=== PATIENT | female | born 1950 | race Caucasian/White ===

== ENCOUNTER → 2018-02-09 07:45 | Outpatient (CLI) | payer OTHER, SELFPAY ==
[2018-02-09 08:31] LABS: Hemoglobin A1c 9.1 % (4.2-6.3); Microalbumin,Random Urine < 5.0 mg/L (NO RANGE EST.)
[2018-02-09 08:44] LABS: AST(SGOT) 19 U/L (15-37); Alanine Aminotransfer ALT/SGPT 17 U/L (13-56); Albumin, Serum 3.4 g/dL (3.2-5.0); Alkaline Phosphatase 73 U/L (45-117); Anion Gap 5 (5-15); BUN 14 mg/dL (7-18); BUN/Creat Ratio 15.4 RATIO (10-20); Calcium,Total 9.1 mg/dL (8.5-10.1); Chloride 103 mmol/L (98-107); Creatinine, Serum 0.91 mg/dL (0.55-1.02); EST Glomerular Filtration Rate 66 mL/min (>60); Est Glom Filt Rate - Afr Amer 80 mL/min (>60); Globulin 3.4 g/dL (2.2-4.2); Glucose 122 mg/dL (74-106); Potassium 4.2 mmol/L (3.5-5.1); Protein, Total 6.8 g/dL (6.4-8.2); Sodium Level 140 mmol/L (136-145); Thyroid Stim Hormone (TSH) 0.25 uIU/mL (0.358-3.74)
== END ==
PROVIDERS: Family Provider Family Medicine; PCP Family Medicine; Visit Provider Nurse Practitioner
DX: E10.9 Type 1 diabetes mellitus without complications (principal); E03.9 Hypothyroidism, unspecified
CPT/HCPCS: 36415; 80053; 82043; 82570; 83036; 84443

== ENCOUNTER → 2018-05-01 09:58 | Outpatient (CLI) | payer OTHER, SELFPAY ==
--- NOTE | 2018-05-01 10:00 | BI_ITS ---
MAMMOGRAPHY - BILATERAL SCREENING 3-D ADARSH SYNTHESIS REASON FOR EXAM: Female, 67 years old. Bilateral Screening 3-D tomosynthesis PERTINENT HISTORY: No significant family history. TECHNIQUE: 2-D mammograms and 3-D Adarsh synthesis of the breast (s) were performed. CAD was performed. COMPARISON: None. FINDINGS: The breast composition is heterogeneously dense that can obscure small breast masses. Scattered benign calcifications are seen. No dense spiculated masses or suspicious microcalcifications are identified. No architectural distortion is identified. There is no skin thickening or retraction. BI/SCREENING MAMM (CAD), BILAT IMPRESSION: No mammographic signs of malignancy. Routine yearly mammograms recommended. ASSESSMENT CATEGORY: BIRADS Category 2: Benign. A letter regarding these results will be sent to the patient by the facility within 30 days. FOLLOW UP RECOMMENDATION: Yearly follow up mammogram recommended. (A) Approximately 10% of breast cancers are not detected by mammography. A normal mammogram should not delay biopsy of a clinically suspicious abnormality. Electronically Signed: Juan Gonzalez MD at 8:56 EDT , Service support ,
== END ==
PROVIDERS: Family Provider Family Medicine; PCP Family Medicine; Visit Provider Family Medicine
DX: Z12.31 Encounter for screening mammogram for malignant neoplasm of breast (principal)
CPT/HCPCS: 77063; 77067

== ENCOUNTER → 2018-06-12 08:13 | Outpatient (CLI) | payer OTHER, SELFPAY ==
[2018-06-12 09:15] LABS: Microalbumin,Random Urine 5.9 mg/L (NO RANGE EST.)
[2018-06-12 09:22] LABS: Hemoglobin A1c 8.2 % (4.2-6.3)
[2018-06-12 09:30] LABS: ALB/GLOB Ratio 0.9 RATIO (0.9-2.4); AST(SGOT) 19 U/L (15-37); Alanine Aminotransfer ALT/SGPT 18 U/L (13-56); Albumin, Serum 3.1 g/dL (3.2-5.0); Alkaline Phosphatase 69 U/L (45-117); Anion Gap 9 (5-15); BUN 14 mg/dL (7-18); BUN/Creat Ratio 15.3 RATIO (10-20); Calcium,Total 8.6 mg/dL (8.5-10.1); Chloride 101 mmol/L (98-107); Cholesterol 114 mg/dL (200); Creatinine, Serum 0.91 mg/dL (0.55-1.02); EST Glomerular Filtration Rate 65 mL/min (>60); Est Glom Filt Rate - Afr Amer 79 mL/min (>60); Globulin 3.4 g/dL (2.2-4.2); Glucose 79 mg/dL (74-106); High Density Lipoprotein 55 mg/dL; Potassium 4.5 mmol/L (3.5-5.1); Protein, Total 6.5 g/dL (6.4-8.2); Sodium Level 141 mmol/L (136-145); T4 Free Direct 1.15 ng/dL (0.76-1.46); Thyroid Stim Hormone (TSH) 1.35 uIU/mL (0.358-3.74); Triglycerides 47 mg/dL; Very Low Density Lipoprotein 9 mg/dL (5-40)
[2018-06-13 08:37] LABS: Vitamin D,25 Hydroxy 49.7 ng/mL (29.95-100.01)
== END ==
PROVIDERS: Family Provider Family Medicine; PCP Family Medicine; Visit Provider Nurse Practitioner
DX: E03.9 Hypothyroidism, unspecified (principal); E10.9 Type 1 diabetes mellitus without complications
CPT/HCPCS: 36415; 80053; 80061; 82043; 82306; 82570; 83036; 84439; 84443; 84481

== ENCOUNTER → 2018-11-30 07:49 | Outpatient (CLI) | payer MEDICARE, OTHER, SELFPAY ==
[2018-06-19 08:39] VITALS: BMI 25.4
[2018-11-30 10:07] LABS: Hematocrit 41.8 % (37-47); Hemoglobin 13.4 g/dl (12.0-15.0); Mean Corp Hgb Conc 32.1 g/gl (32-36); Mean Corpuscular Volume 87.4 fL (81-99); Mean Platelet Vol. 11.2 fl (6.2-12.0); Platelet Count 322 K/mm3 (150-450); RBC Distribution Width CV 13.9 % (11.6-14.6); RBC Distribution Width SD 44.7 fl (35.1-43.9); Red Blood Count 4.78 M/mm3 (4.2-5.4); Scan Indicated on CBC? Y/N NO; White Blood Count 7.3 K/mm3 (4.4-11.0)
[2018-11-30 10:26] LABS: Hemoglobin A1c 9.6 % (4.2-6.3)
[2018-11-30 10:28] LABS: Vitamin D,25 Hydroxy 51.5 ng/mL (29.95-100.01)
[2018-11-30 10:40] LABS: ALB/GLOB Ratio 0.9 RATIO (0.9-2.4); AST(SGOT) 17 U/L (15-37); Alanine Aminotransfer ALT/SGPT 18 U/L (13-56); Albumin, Serum 3.2 g/dL (3.2-5.0); Alkaline Phosphatase 80 U/L (45-117); Anion Gap 10 (5-15); BUN 18 mg/dL (7-18); BUN/Creat Ratio 19.8 RATIO (10-20); Calcium,Total 8.5 mg/dL (8.5-10.1); Chloride 102 mmol/L (98-107); Cholesterol 131 mg/dL (200); Creatinine, Serum 0.91 mg/dL (0.55-1.02); EST Glomerular Filtration Rate 66 mL/min (>60); Est Glom Filt Rate - Afr Amer 79 mL/min (>60); Globulin 3.4 g/dL (2.2-4.2); Glucose 174 mg/dL (74-106); High Density Lipoprotein 58 mg/dL; Potassium 4.3 mmol/L (3.5-5.1); Protein, Total 6.6 g/dL (6.4-8.2); Sodium Level 140 mmol/L (136-145); Thyroid Stim Hormone (TSH) 1.25 uIU/mL (0.358-3.74); Triglycerides 79 mg/dL; Very Low Density Lipoprotein 16 mg/dL (5-40)
== END ==
PROVIDERS: Family Provider Family Medicine; PCP Family Medicine; Referring Provider Family Medicine; Visit Provider Family Medicine
DX: E03.9 Hypothyroidism, unspecified (principal); E10.9 Type 1 diabetes mellitus without complications
CPT/HCPCS: 36415; 80053; 80061; 82306; 83036; 84443; 85027

== ENCOUNTER → 2019-03-28 07:40 | Outpatient (CLI) | payer MEDICARE, OTHER, SELFPAY ==
[2019-03-28 10:16] LABS: Anion Gap 8 (5-15); BUN 20 mg/dL (7-18); BUN/Creat Ratio 20.3 RATIO (10-20); Calcium,Total 8.8 mg/dL (8.5-10.1); Chloride 102 mmol/L (98-107); Creatinine, Serum 0.98 mg/dL (0.55-1.02); EST Glomerular Filtration Rate 60 mL/min (>60); Est Glom Filt Rate - Afr Amer 72 mL/min (>60); Glucose 344 mg/dL (74-106); Potassium 4.4 mmol/L (3.5-5.1); Sodium Level 139 mmol/L (136-145); Thyroid Stim Hormone (TSH) 1.05 uIU/mL (0.358-3.74)
[2019-03-28 10:20] LABS: Hemoglobin A1c 8.6 % (4.2-6.3)
== END ==
PROVIDERS: Family Provider Family Medicine; PCP Family Medicine; Referring Provider Family Medicine; Visit Provider Family Medicine
DX: E03.9 Hypothyroidism, unspecified (principal); E10.9 Type 1 diabetes mellitus without complications
CPT/HCPCS: 36415; 80048; 83036; 84443

== ENCOUNTER → 2019-07-04 07:59 | Outpatient (CLI) | payer MEDICARE, OTHER, SELFPAY ==
[2019-07-04 08:40] LABS: Microalbumin,Random Urine 9.2 mg/L (NO RANGE EST.); Microalbumin:Creatinine Ratio 10.5 mg/g CRE (<30 mg/g CRE)
[2019-07-04 08:50] LABS: AST(SGOT) 19 U/L (15-37); Alanine Aminotransfer ALT/SGPT 17 U/L (13-56); Albumin, Serum 3.2 g/dL (3.2-5.0); Alkaline Phosphatase 75 U/L (45-117); Anion Gap 7 (5-15); BUN 20 mg/dL (7-18); BUN/Creat Ratio 21.1 RATIO (10-20); Calcium,Total 8.6 mg/dL (8.5-10.1); Chloride 103 mmol/L (98-107); Cholesterol 147 mg/dL (200); Creatinine, Serum 0.95 mg/dL (0.55-1.02); EST Glomerular Filtration Rate 63 mL/min (>60); Est Glom Filt Rate - Afr Amer 76 mL/min (>60); Globulin 3.3 g/dL (2.2-4.2); Glucose 171 mg/dL (74-106); High Density Lipoprotein 69 mg/dL; Potassium 4.7 mmol/L (3.5-5.1); Protein, Total 6.5 g/dL (6.4-8.2); Sodium Level 141 mmol/L (136-145); Thyroid Stim Hormone (TSH) 0.98 uIU/mL (0.358-3.74); Triglycerides 89 mg/dL; Very Low Density Lipoprotein 18 mg/dL (5-40)
== END ==
LOC: LAB.FUTURE 08:01 → LAB 08:04
PROVIDERS: Family Provider Family Medicine; PCP Family Medicine; Referring Provider Nurse Practitioner; Visit Provider Nurse Practitioner
DX: E10.9 Type 1 diabetes mellitus without complications (principal)
CPT/HCPCS: 36415; 80053; 80061; 82043; 82570; 83036; 84443

== ENCOUNTER → 2019-08-08 12:05 | Outpatient (CLI) | payer MEDICARE, OTHER, SELFPAY ==
--- NOTE | 2019-08-08 12:07 | US_ITS ---
STUDY: THYROID ULTRASOUND REASON FOR EXAM: Female, 68 years old. Hypothyroidism. Dysphagia. TECHNIQUE: Ultrasound evaluation of the thyroid was performed with real-time and static licona-scale imaging. COMPARISON: None. FINDINGS: RIGHT LOBE: The right lobe of the thyroid gland is decreased in size and measures 2.2 cm x 0.7 cm x 0.7 cm. There is a heterogeneous echotexture. There are no demonstrated solid, cystic or complex lesions. LEFT LOBE: The left lobe of the thyroid gland is small and measures 2 cm x 0.8 cm x 0.7 cm. There is a heterogeneous echotexture. There are no demonstrated solid, cystic or complex lesions. ISTHMUS: The isthmus measures 1.0 mm. The regional lymph nodes are normal. US/Thyroid IMPRESSION: Decreased size of the both lobes of the thyroid with heterogeneous echotexture. Electronically Signed: Vincenzo Murillo, at 10:07 EDT , Service support ,
== END ==
PROVIDERS: Family Provider Family Medicine; PCP Family Medicine; Referring Provider Nurse Practitioner; Visit Provider Nurse Practitioner
DX: E03.9 Hypothyroidism, unspecified (principal); E10.9 Type 1 diabetes mellitus without complications
CPT/HCPCS: 76536

== ENCOUNTER → 2019-11-19 08:31 | Outpatient (CLI) | payer MEDICARE, OTHER, SELFPAY ==
[2018-06-19 08:39] VITALS: BMI 25.4
[2019-11-19 09:34] LABS: Hemoglobin A1c 9.3 % (4.2-6.3)
[2019-11-19 09:39] LABS: ALB/GLOB Ratio 0.9 RATIO (0.9-2.4); AST(SGOT) 16 U/L (15-37); Alanine Aminotransfer ALT/SGPT 17 U/L (13-56); Albumin, Serum 3.2 g/dL (3.2-5.0); Alkaline Phosphatase 70 U/L (45-117); Anion Gap 3 (5-15); BUN 16 mg/dL (7-18); BUN/Creat Ratio 16.8 RATIO (10-20); Calcium,Total 8.8 mg/dL (8.5-10.1); Chloride 103 mmol/L (98-107); Cholesterol 159 mg/dL (200); Creatinine, Serum 0.95 mg/dL (0.55-1.02); EST Glomerular Filtration Rate 62 mL/min (>60); Est Glom Filt Rate - Afr Amer 75 mL/min (>60); Globulin 3.5 g/dL (2.2-4.2); Glucose 203 mg/dL (74-106); High Density Lipoprotein 71 mg/dL; Potassium 4.3 mmol/L (3.5-5.1); Protein, Total 6.7 g/dL (6.4-8.2); Sodium Level 138 mmol/L (136-145); Thyroid Stim Hormone (TSH) 0.48 uIU/mL (0.358-3.74); Triglycerides 88 mg/dL; Very Low Density Lipoprotein 18 mg/dL (5-40)
== END ==
PROVIDERS: PCP Family Medicine; Referring Provider Nurse Practitioner; Visit Provider Nurse Practitioner
DX: E10.9 Type 1 diabetes mellitus without complications (principal); E03.9 Hypothyroidism, unspecified
CPT/HCPCS: 36415; 80053; 80061; 83036; 84443

== ENCOUNTER → 2021-01-26 09:28 | Outpatient (CLI) | payer MEDICARE, OTHER, SELFPAY ==
[2021-01-26 08:33] VITALS: BMI 26.6
[2021-01-26 12:44] LABS: Absolute Lymphocyte Count 1.66 X10^3/uL (0.83-4.51); Absolute Neutrophil Count 3.7 X10^3/uL (2.0-7.7); Basophil# 0.09 X10^3/uL; Basophil% 1.5 % (0-1); Eosinophil# 0.21 X10^3/uL; Eosinophils% 3.4 % (0-5); Hematocrit 42.6 % (37-47); Hemoglobin 13.7 g/dL (12.0-15.0); Lymphocyte # 1.66 X10^3/ul (0.83-4.51); Lymphocyte % 27.3 % (19-41); Mean Corp Hgb Conc 32.2 g/dL (32-36); Mean Corpuscular Hgb 28.4 pg (27.0-32.0); Mean Corpuscular Volume 88.2 fL (81-99); Mean Platelet Vol. 11.6 fl (6.2-12.0); Monocyte# 0.41 X10^3/uL; Monocyte% 6.7 % (0-10); NRBC Flagged by Analyzer 0 % (0-5); Neutrophil % 60.8 % (47-70); Platelet Count 258 K/mm3 (150-450); RBC Distribution Width CV 13.6 % (11.6-14.6); RBC Distribution Width SD 44.2 fl (35.1-43.9); Red Blood Count 4.83 M/mm3 (4.2-5.4); White Blood Count 6.1 K/mm3 (4.4-11.0)
[2021-01-26 12:47] LABS: AST(SGOT) 17 U/L (15-37); Alanine Aminotransfer ALT/SGPT 21 U/L (13-56); Albumin, Serum 3.4 g/dL (3.2-5.0); Alkaline Phosphatase 85 U/L (45-117); Anion Gap 3 (5-15); BUN 15 mg/dL (7-18); BUN/Creat Ratio 15.4 RATIO (10-20); Chloride 98 mmol/L (98-107); Cholesterol 152 mg/dL (200); Creatinine, Serum 0.97 mg/dL (0.55-1.02); EST Glomerular Filtration Rate 60 mL/min (>60); Est Glom Filt Rate - Afr Amer 73 mL/min (>60); Globulin 3.4 g/dL (2.2-4.2); Glucose 278 mg/dL (74-106); High Density Lipoprotein 81 mg/dL; Potassium 4.6 mmol/L (3.5-5.1); Protein, Total 6.8 g/dL (6.4-8.2); Sodium Level 135 mmol/L (136-145); T4 Free Direct 1.32 ng/dL (0.76-1.46); Thyroid Stim Hormone (TSH) 0.71 uIU/mL (0.358-3.74); Triglycerides 80 mg/dL; Very Low Density Lipoprotein 16 mg/dL (5-40)
[2021-01-26 13:06] LABS: Microalbumin,Random Urine 5.4 mg/L (NO RANGE EST.); Microalbumin:Creatinine Ratio 6.3 mg/g CRE (<30 mg/g CRE)
== END ==
PROVIDERS: PCP Family Medicine; Referring Provider Internal Medicine Endocrinology, Diabetes & Metabolism; Visit Provider Internal Medicine Endocrinology, Diabetes & Metabolism
DX: E03.9 Hypothyroidism, unspecified (principal); E78.2 Mixed hyperlipidemia
CPT/HCPCS: 36415; 80053; 80061; 82043; 82570; 84439; 84443; 85025

== ENCOUNTER → 2021-06-28 09:32 | Outpatient (CLI) | payer MEDICARE, OTHER, SELFPAY ==
--- NOTE | 2021-06-28 09:37 | RAD_ITS ---
HISTORY: CHRONIC COUGH. TECHNIQUE: XR Chest 2 Views. # of images incl. paperwork: 2. COMPARISON: 11/06/2014. FINDINGS: CARDIOMEDIASTINAL STRUCTURES: Cardiac silhouette not enlarged. Mediastinal contour unremarkable with calcification of the aortic knob. LUNGS: Radiographically clear. PLEURA: No pleural effusion or pneumothorax. OSSEOUS STRUCTURES: Mild degenerative change. RAD/Chest PA and Lateral IMPRESSION: No radiographic evidence of acute cardiopulmonary disease. at 1702 Reported and signed by: Rossy Chi MD Electronically Signed: Rossy Chi MD at 17:01 EDT Tel , Service support ,
== END ==
PROVIDERS: PCP Family Medicine; Referring Provider Family Medicine; Visit Provider Family Medicine
DX: R05 Cough (principal)
CPT/HCPCS: 71046

== ENCOUNTER → 2021-06-29 10:53 | Outpatient (CLI) | payer MEDICARE, OTHER, SELFPAY ==
--- NOTE | 2021-07-02 10:32 | PFT ---
INTRODUCTION: The patient is a 70-year-old female that presents for pulmonary function studies secondary to a diagnosis of chronic cough. Respiratory therapy reported good patient effort. Bronchodilators were used during testing. INTERPRETATION: Forced expiration spirometry demonstrates no evidence of a large airways obstructive ventilatory defect. There was no significant response to aerosolized bronchodilators. Spirograms are of good quality and plateau normally. Body plethysmography was performed and reveals lung volumes to be within normal limits. Diffusing capacity by single breath CO is also within normal limits. IMPRESSION: Grossly normal pulmonary function studies.
== END ==
PROVIDERS: PCP Family Medicine; Referring Provider Family Medicine; Visit Provider Family Medicine
DX: R05 Cough (principal)
CPT/HCPCS: 94060; 94726; 94729

== ENCOUNTER 2021-11-22 08:54 | Outpatient (CLI) | payer MEDICARE, OTHER, SELFPAY ==
[2021-11-22 12:52] LABS: ALB/GLOB Ratio 0.9 RATIO (0.9-2.4); AST(SGOT) 17 U/L (15-37); Alanine Aminotransfer ALT/SGPT 17 U/L (13-56); Albumin, Serum 3.1 g/dL (3.2-5.0); Alkaline Phosphatase 76 U/L (45-117); Anion Gap 5 (5-15); BUN 14 mg/dL (7-18); BUN/Creat Ratio 15.1 RATIO (10-20); Calcium,Total 8.8 mg/dL (8.5-10.1); Chloride 100 mmol/L (98-107); Cholesterol 126 mg/dL (200); Creatinine, Serum 0.93 mg/dL (0.55-1.02); EST Glomerular Filtration Rate 64 mL/min (>60); Est Glom Filt Rate - Afr Amer 77 mL/min (>60); Globulin 3.3 g/dL (2.2-4.2); Glucose 276 mg/dL (74-106); High Density Lipoprotein 65 mg/dL; Potassium 4.7 mmol/L (3.5-5.1); Protein, Total 6.4 g/dL (6.4-8.2); Sodium Level 134 mmol/L (136-145); Thyroid Stim Hormone (TSH) 0.76 uIU/mL (0.358-3.74); Triglycerides 90 mg/dL; Very Low Density Lipoprotein 18 mg/dL (5-40)
[2021-11-22 13:34] LABS: T4 Free Direct 1.26 ng/dL (0.76-1.46)
[2021-11-22 14:01] LABS: Microalbumin,Random Urine 6.5 mg/L (NO RANGE EST.); Microalbumin:Creatinine Ratio 12.5 mg/g CRE (<30 mg/g CRE)
== END 2021-11-22 23:59 | disposition home or self-care (01) ==
PROVIDERS: PCP Family Medicine; Referring Provider Internal Medicine Endocrinology, Diabetes & Metabolism; Visit Provider Internal Medicine Endocrinology, Diabetes & Metabolism
DX: E10.42 Type 1 diabetes mellitus with diabetic polyneuropathy (principal); E10.65 Type 1 diabetes mellitus with hyperglycemia; E03.8 Other specified hypothyroidism; E06.3 Autoimmune thyroiditis; E78.2 Mixed hyperlipidemia; I10 Essential (primary) hypertension; E55.9 Vitamin D deficiency, unspecified
CPT/HCPCS: 36415; 80053; 80061; 82043; 82306; 82570; 84439; 84443

== ENCOUNTER 2021-11-30 10:02 | Outpatient (CLI) | payer MEDICARE, OTHER, SELFPAY ==
--- NOTE | 2021-11-30 10:04 | BI_ITS ---
MAMMOGRAPHY - BILATERAL SCREENING REASON FOR EXAM: Female, 71 years old. Routine annual screening examination. PERTINENT HISTORY: Non-contributory. TECHNIQUE: Digital bilateral breast adarsh (3D mammographic acquisition) in the CC and MLO projections. 2-D mediolateral oblique (MLO) and craniocaudad (CC) views of both breasts were obtained. CAD: Full Field Digital Mammography with Computer Added Detection was performed. COMPARISON: Comparison is made with prior study dated 05/01/2018. FINDINGS: Breast Composition: The breasts are heterogeneously dense, which may obscure small masses. There are no dominant masses or suspicious calcifications. No other significant abnormalities are identified. There has been no significant change since the prior study. BI/SCRN MAMM (CAD)W/ADARSH BILAT IMPRESSION: Stable bilateral screening mammogram. Yearly follow-up mammogram recommended. (A) ASSESSMENT CATEGORY: BIRADS Category 1: Negative. A letter regarding these results will be sent to the patient by the facility within 30 days. Approximately 10% of breast cancers are not detected by mammography. A normal mammogram should not delay biopsy of a clinically suspicious abnormality. [id number] Electronically Signed: Vincenzo Murillo MD at 11:17 EST ,
--- NOTE | 2021-11-30 10:12 | BD_ITS ---
STUDY: DUAL ENERGY X-RAY ABSORPTIOMETRY / DXA REASON FOR EXAM: Female, 71 years old. Z780. Patient is postmenopausal. TECHNIQUE: Bone Mineral Density (BMD) measurements of lumbar spine and bilateral hips were obtained. COMPARISON: None. FINDINGS: Lumbar Spine (L1-L4): g/cm2 (1.002) / T-score (-0.4) / Z-score (1.7) Findings are suggestive of normal bone density with a low fracture risk. Left Femur Total: g/cm2 (0.818) / T-score (-1.0) / Z-score (0.5) Left Femoral Neck: g/cm2 (0.644) / T-score (-1.8) / Z-score (0.0) Right Femur Total: g/cm2 (0.836) / T-score (-0.9) / Z-score (0.6) Right Femoral Neck: g/cm2 (0.628) / T-score (-2.0) / Z-score (-0.2) BD/Dexa Bone Density Study IMPRESSION: The patient is considered osteopenic as outlined below according to World Mendel Organization (WHO) criteria with a moderate fracture risk. Reference Information: The T-score is the number of standard deviations above or below the standard which is normal for young adults at their peak bone mineral density. The World Health Organization (WHO) interprets the T-scores as follows: Above -1 Normal bone density Between -1 and -2.5 Osteopenia Equal to / or below -2.5 Osteoporosis As a practical clinical guideline, osteopenia may be graded as follows: Mild -1 through -1.5 Moderate -1.6 through -2.0 Severe -2.1 through -2.4 The Z-score is the number of standard deviations above or below age-matched controls. A Z-score of less than -1.5 would be considered abnormal. References: 1. NIH Osteoporosis and Related Bone Diseases www osteo.org 2. International Society for Clinical Densitometry www iscd.org 3. National Osteoporosis Foundation www nof.org Electronically Signed: Vincenzo Murillo MD at 15:41 EST ,
== END 2021-11-30 23:59 | disposition home or self-care (01) ==
LOC: OPBD 10:03
PROVIDERS: PCP Family Medicine; Referring Provider Family Medicine; Visit Provider Family Medicine
DX: Z12.31 Encounter for screening mammogram for malignant neoplasm of breast (principal); Z78.0 Asymptomatic menopausal state
CPT/HCPCS: 77063; 77067; 77080

== ENCOUNTER 2022-06-06 08:00 | Outpatient (RCR) | payer MEDICARE, OTHER, SELFPAY ==
--- NOTE | 2022-05-30 12:29 | HP.PTEVAL ---
Patient's Visit Information GENARO MADISON is a 71 year old F referred to Physical Therapy by Dr. Mark Calabrese MD with a diagnosis of vertigo. Date of Evaluation: 05/30/22 Physical Therapist: David Painting DPT, OCS, CSCS - Visit Plan Frequency: 1x/Week Duration: 2-4 Weeks Plan: weekly as needed for positional treatments and vestibular interventions as necessary - Subjective Has a sort of dizzyness episodes if turning head or turning in bed. Feels a little off balance walking in neighborhood but not dangerous. Does not bend over to garden or brush dog. Feels like bending over willbring on vertiog. described as odd feeling when she moves intermittently. Had this for 1-2 years. Started out of nowhere with nearly falling down after bending over. had Sathya from [place] several times which helped instantly. It got better but now creeping back with little things like she will not sleep on her right side. Last episode was last night turning right. Lasts seconds and feels good balance in between. No falls. Activities outside of the above are not a problem. Dresses and basic ADls are OK. Hobbies include sewing. No regular ex. Going to [place] in a couple months. - Objective Walks and trasnfers and steps normal and without difficulty. Cervical aROM WFL and without pain or hesitation. - L Hallpike elaine. + R HD for up torsional 6 second nystagmus, treated with Sathya and then - R HD. - Balance/Special Test Scores Functional Gait Assessment Score: 28 % Disability: 6.6700 Dizziness Score: 20 - Goals Goal 1:: abolish vertigo Goal Time Frame: 2-4 Weeks Goal 2:: bend to brush dog and garden without symptoms Goal Time Frame: 2-4 Weeks Goal 3:: feel 100% better Goal Time Frame: 2-4 Weeks - Rehabilitation Potential Physical Therapy Diagnosis: BPPV Rehabilitation Potential: Good - Anticipated Interventions Patient/Client Instruction: Educate patient on: Condition, Plan of Care For the Purpose of:: To improve muscle performance and motor function, To increase tolerance to activity/condition/position Comment: positional For the Purpose of:: To increase tolerance to activity/condition/position Thank you for the opportunity to evaluate your patient. For Medicare and Medicare HMO plans, please review the plan of care and approve it. It will need to be FAXED BACK to us at [phone] for Medicare purposes. For Medicare only, by signing this I certify the plan of care. Please let me know if there are questions or concerns regarding this plan of care. Physician Signature: Date:
--- NOTE | 2022-06-06 08:11 | HP.PTDCSUM ---
It has been my pleasure to treat GENARO MADISON referred by Dr. Mark Calabrese MD, with the diagnosis of vertigo for a total of 2 visit(s). Discharge Date: 06/06/22 Please see the following information for a summary of their discharge status. Subjective: Last week has been great , no sensations. Still a little iffy with bending over. Slept on left side but not right. Objective/Function: - B hallpike elaine. - roll test. No symptoms with any positions today bedning, turning, HD or rolling. Goal 1:: abolish vertigo Goal Progress: Goal Met Goal 2:: bend to brush dog and garden without symptoms Goal Progress: Goal Met in clinic Goal 3:: feel 100% better Goal Progress: Goal Met Plan: weekly as needed for positional treatments and vestibular interventions as necessary If there are questions or concerns regarding this patient's physical therapy, please feel free to call me at [phone]. Thank you for the referral of this patient. Sincerely, David Painting, DPT, OCS, CSCS Balance/Gait/Functional tests - Balance/Special Test Scores Functional Gait Assessment Score: 28 % Disability: 6.6700 Dizziness Score: 0
== END 2022-06-06 19:00 | disposition home or self-care (01) ==
LOC: PT 08:00
PROVIDERS: PCP Family Medicine; Referring Provider Family Medicine; Visit Provider Family Medicine
DX: R42 Dizziness and giddiness (principal)
CPT/HCPCS: 97161; 97530

== ENCOUNTER 2023-01-09 07:43 | Outpatient (CLI) | payer MEDICARE, OTHER, SELFPAY ==
[2023-01-09 08:57] LABS: Microalbumin,Random Urine 5.3 mg/L (NO RANGE EST.); Microalbumin:Creatinine Ratio 20.5 mg/g CRE (<30 mg/g CRE)
[2023-01-09 09:05] LABS: Vitamin D,25 Hydroxy 73.9 ng/mL
[2023-01-09 09:12] LABS: AST(SGOT) 26 U/L (15-37); Alanine Aminotransfer ALT/SGPT 24 U/L (13-56); Albumin, Serum 3.3 g/dL (3.2-5.0); Alkaline Phosphatase 73 U/L (45-117); Anion Gap 2 (5-15); BUN 14 mg/dL (7-18); BUN/Creat Ratio 13.9 RATIO (10-20); Calcium,Total 8.9 mg/dL (8.5-10.1); Chloride 104 mmol/L (98-107); Cholesterol 159 mg/dL (200); Creatinine, Serum 1.01 mg/dL (0.55-1.02); EST Glomerular Filtration Rate 57 mL/min (>60); Est Glom Filt Rate - Afr Amer 69 mL/min (>60); Globulin 3.3 g/dL (2.2-4.2); Glucose 156 mg/dL (74-106); High Density Lipoprotein 78 mg/dL; Potassium 3.9 mmol/L (3.5-5.1); Protein, Total 6.6 g/dL (6.4-8.2); Sodium Level 138 mmol/L (136-145); T4 Free Direct 1.19 ng/dL (0.76-1.46); Thyroid Stim Hormone (TSH) 1.29 uIU/mL (0.358-3.74); Triglycerides 58 mg/dL; Very Low Density Lipoprotein 12 mg/dL (5-40)
== END 2023-01-09 23:59 | disposition home or self-care (01) ==
LOC: LAB 07:44
PROVIDERS: PCP Family Medicine; Referring Provider Internal Medicine Endocrinology, Diabetes & Metabolism; Visit Provider Internal Medicine Endocrinology, Diabetes & Metabolism
DX: E10.42 Type 1 diabetes mellitus with diabetic polyneuropathy (principal); E03.8 Other specified hypothyroidism; E06.3 Autoimmune thyroiditis; E78.2 Mixed hyperlipidemia; I10 Essential (primary) hypertension; E55.9 Vitamin D deficiency, unspecified
CPT/HCPCS: 36415; 80053; 80061; 82043; 82306; 82570; 84439; 84443

== ENCOUNTER → 2023-12-27 | Outpatient (CLI) | payer MEDICARE, OTHER, SELFPAY ==
[2023-12-27 10:25] LABS: Erythrocyte Sedimentation Rate 23 mm/hr (0-30)
[2023-12-27 10:35] LABS: Absolute Lymphocyte Count 2.38 X10^3/uL (0.83-4.51); Absolute Neutrophil Count 4.4 X10^3/uL (2.0-7.7); Basophil# 0.12 X10^3/uL; Basophil% 1.6 % (0-1); Eosinophil# 0.25 X10^3/uL; Eosinophils% 3.3 % (0-5); Hematocrit 42.3 % (37-47); Hemoglobin 13.6 g/dL (12.0-15.0); Lymphocyte # 2.38 X10^3/ul (0.83-4.51); Lymphocyte % 31.1 % (19-41); Mean Corp Hgb Conc 32.2 g/dL (32-36); Mean Corpuscular Volume 87.2 fL (81-99); Mean Platelet Vol. 12.1 fl (6.2-12.0); Monocyte# 0.46 X10^3/uL; NRBC Flagged by Analyzer 0 % (0-5); Neutrophil # 4.43 X10^3/uL (2.7-7.7); Neutrophil % 57.7 % (47-70); Platelet Count 249 K/mm3 (150-450); RBC Distribution Width CV 13.8 % (11.6-14.6); RBC Distribution Width SD 44.4 fl (35.1-43.9); Red Blood Count 4.85 M/mm3 (4.2-5.4); White Blood Count 7.7 K/mm3 (4.4-11.0)
[2023-12-27 11:02] LABS: Vitamin B12 1358 pg/mL (211-911)
[2023-12-27 11:31] LABS: AST(SGOT) 21 U/L (15-37); Alanine Aminotransfer ALT/SGPT 17 U/L (13-56); Albumin, Serum 3.5 g/dL (3.2-5.0); Alkaline Phosphatase 74 U/L (45-117); Anion Gap 5 (5-15); BUN 16 mg/dL (7-18); BUN/Creat Ratio 16.8 RATIO (10-20); Calcium,Total 9.4 mg/dL (8.5-10.1); Chloride 101 mmol/L (98-107); Cholesterol 153 mg/dL (200); Creatinine, Serum 0.95 mg/dL (0.55-1.02); EST Glomerular Filtration Rate 61 mL/min (>60); Est Glom Filt Rate - Afr Amer 74 mL/min (>60); Globulin 3.4 g/dL (2.2-4.2); Glucose 202 mg/dL (74-106); High Density Lipoprotein 77 mg/dL; Magnesium 2.3 mg/dL (1.6-2.6); Potassium 4.5 mmol/L (3.5-5.1); Protein, Total 6.9 g/dL (6.4-8.2); Sodium Level 136 mmol/L (136-145); T4 Free Direct 1.66 ng/dL (0.76-1.46); Triglycerides 85 mg/dL; Very Low Density Lipoprotein 17 mg/dL (5-40)
== END | disposition home or self-care (01) ==
LOC: MFPLAB 08:02
PROVIDERS: PCP Family Medicine; Visit Provider Family Medicine
DX: E10.42 Type 1 diabetes mellitus with diabetic polyneuropathy (principal); R42 Dizziness and giddiness; E03.9 Hypothyroidism, unspecified
CPT/HCPCS: 36415; 80053; 80061; 82607; 83735; 84439; 84443; 85025; 85652

== ENCOUNTER → 2024-01-29 | Outpatient (CLI) | payer MEDICARE, OTHER, SELFPAY ==
[2024-01-29 10:56] LABS: T4 Free Direct 1.39 ng/dL (0.76-1.46); Thyroid Stim Hormone (TSH) 0.52 uIU/mL (0.358-3.74)
[2024-01-29 13:19] LABS: Hemoglobin A1c 8.4 % (3.8-5.6)
== END | disposition home or self-care (01) ==
LOC: MFPLAB 08:14
PROVIDERS: PCP Family Medicine; Visit Provider Family Medicine
DX: E03.9 Hypothyroidism, unspecified (principal); E10.42 Type 1 diabetes mellitus with diabetic polyneuropathy
CPT/HCPCS: 36415; 83036; 84439; 84443

== ENCOUNTER → 2024-03-05 | Outpatient (CLI) | payer MEDICARE, OTHER, SELFPAY ==
--- NOTE | 2024-03-05 14:58 | BI_ITS ---
MAMMOGRAPHY - BILATERAL SCREENING REASON FOR EXAM: Female, 73 years old. Routine annual screening examination. PERTINENT HISTORY: Non-contributory. TECHNIQUE: Digital bilateral breast adarsh (3D mammographic acquisition) in the CC and MLO projections. 2-D mediolateral oblique (MLO) and craniocaudad (CC) views of both breasts were obtained. CAD: Full Field Digital Mammography with Computer Added Detection was performed. COMPARISON: Comparison is made with prior study dated November 30, 2021 and May 01, 2018. FINDINGS: Breast Composition: The breasts are extremely dense, which lowers the sensitivity of mammography. There are no dominant masses or suspicious calcifications. Stable small benign-appearing bilateral axillary lymph nodes. No other significant abnormalities are identified. There has been no significant change since the prior study. BI/SCRN MAMM (CAD)W/ADARSH BILAT IMPRESSION: Stable bilateral screening mammogram. Yearly follow-up mammogram recommended. (A) ASSESSMENT CATEGORY: BIRADS Category 2: Benign. A letter regarding these results will be sent to the patient by the facility within 30 days. Approximately 10% of breast cancers are not detected by mammography. A normal mammogram should not delay biopsy of a clinically suspicious abnormality. [id number] Electronically Signed: Vincenzo Murillo MD at 8:34 EDT ,
--- NOTE | 2024-03-05 14:58 | BD_ITS ---
STUDY: DUAL ENERGY X-RAY ABSORPTIOMETRY / DXA REASON FOR EXAM: Female, 73 years old. 627.8Menopausal postmenopausalBONE DENSITY REASON FOR EXAM TECHNIQUE: Bone Mineral Density (BMD) measurements of lumbar spine and bilateral hips were obtained. COMPARISON: Comparison is made with prior study of November 30, 2021. FINDINGS: Lumbar Spine (L1-L4): g/cm2 (1.012) / T-score (-0.3) / Z-score (1.9) Findings are suggestive of normal bone density with a low fracture risk. Left Femur Total: g/cm2 (0.817) / T-score (-1.0) / Z-score (0.6) Left Femoral Neck: g/cm2 (0.638) / T-score (-1.9) / Z-score (0.0) Right Femur Total: g/cm2 (0.833) / T-score (-0.9) / Z-score (0.7) Right Femoral Neck: g/cm2 (0.618) / T-score (-2.1) / Z-score (-0.1) The T-Scores on the most recent prior examination were: Lumbar Spine (L1-L4): There has been improvement of bone density since the previous examination. Left Femur Total: which represents a worsening of 0.1%. Right Femur Total: which represents a worsening of 0.4%. BD/Dexa Bone Density Study IMPRESSION: The patient is considered osteopenic as outlined below according to World Mendel Organization (WHO) criteria with a high fracture risk. There has been worsening of bone density since the previous examination. Reference Information: The T-score is the number of standard deviations above or below the standard which is normal for young adults at their peak bone mineral density. The World Health Organization (WHO) interprets the T-scores as follows: Above -1 Normal bone density Between -1 and -2.5 Osteopenia Equal to / or below -2.5 Osteoporosis As a practical clinical guideline, osteopenia may be graded as follows: Mild -1 through -1.5 Moderate -1.6 through -2.0 Severe -2.1 through -2.4 The Z-score is the number of standard deviations above or below age-matched controls. A Z-score of less than -1.5 would be considered abnormal. References: 1. NIH Osteoporosis and Related Bone Diseases www osteo.org 2. International Society for Clinical Densitometry www iscd.org 3. National Osteoporosis Foundation www nof.org Electronically Signed: Vincenzo Murillo MD at 9:19 EDT ,
== END | disposition home or self-care (01) ==
LOC: OPBD 14:57
PROVIDERS: PCP Family Medicine; Referring Provider Family Medicine; Visit Provider Family Medicine
DX: Z12.31 Encounter for screening mammogram for malignant neoplasm of breast (principal); Z78.0 Asymptomatic menopausal state
CPT/HCPCS: 77063; 77067; 77080

== ENCOUNTER 2024-04-23 09:00 | Outpatient (RCR) | payer MEDICARE, OTHER, SELFPAY ==
--- NOTE | 2024-04-10 18:59 | HP.PTEVAL_ITS ---
Patient's Visit Information Visit Information Visit Information: GENARO MADISON is a 73 year old F referred to Physical Therapy by Dr. Rogelio Calabrese MD with a diagnosis of vertigo. Date of Evaluation: 04/10/24 Physical Therapist: Yudy Huitron MPT Visit Plan Frequency: 2x /Week Duration: 4 Weeks Plan: 1-2X/ week for Hallpike testing and tx and possible VOR and balance testing Subjective Subjective: She was really bad when she moved into her new house a few years ago and lately it is just creeping back. She was in here before and they did not think it was dizziness. She is now dizzy. Turning over in bed she is dizzy. She has the sensation if she looks ups. She was picking up something off the floor and bent over and continued to go over and fell. She adjusted meds...BP but does not think that was it. It is to the R when roll over and she spins and it lasts a few seconds and then it goes away. At the hairdresser she put her he ad back and tried to get right up and she was very unsteady. She has no nausea. Objective Objective: + R Hallpike for torsional nystagmus. Treated with R Eply. Pt had nystagmus when rolled head to the L that lasted about 15 seconds and then felt better once sat up. Re tested R Hallpike and pt felt like it could come back but did not. Treated w ith R Eply anyway. Retested R Hallpike for a third time and no dizzy feeling or nystagmus...st pt up Pt did feel off walking out of clinic once the crystal were put back in place. Balance/Special Test Scores Dizziness Score: 22 Goals Goal 1:: I HEP Goal Time Frame: 2-4 Weeks Goal 2:: Abolish dizziness Goal Time Frame: 2-4 Weeks Goal 3:: Test VOR and FGA once abolish dizziness if pt is still having uns teadiness Goal Time Frame: 2-4 Weeks Rehabilitation Potential Rehabilitation Potential: Good Anticipated Interventions Patient/Client Instruction: Educate patient on: Condition and Plan of Care For the Purpose of:: To improve ability to perform ADL's, To increase tolerance to activity/condition/position, To improve gait and locomotor functions, To improve endurance, To improve balance and To improve safety with gait Therapeutic Exercise to Include: Endurance training, Balance training, Coordination, Postural training, Flexibilty training, Gait and locomotor training, Neuromotor development and Active ROM For the Purpose of:: To improve ability to perform ADL's, To improve gait and locomotor functions, To improve balance and To improve safety with gait Functional Training to Include: Gait training For the Purpose of:: To improve gait and locomotor functions Text: Thank you for the opportunity to evaluate your patient. For Medicare and Medicare HMO plans, please review the plan of care and approve it. It will need to be FAXED BACK to us at [phone] for Medicare purposes. For Medicare only, by signing this I certify the plan of care. Please let me know if there are questions or concerns regarding this plan of care. Physician Signature: Date:
--- NOTE | 2024-04-23 09:37 | HP.PTDCSUM ---
Discharge Summary D/C summary: It has been my pleasure to treat GENARO MADISON referred by Dr. Rogelio Calabrese MD, with the diagnosis of vertigo for a total of 3 visit(s). Discharge Date: 04/23/24 Please see the following information for a summary of their discharge status. Subjective Subjective: Pt has no dizziness. Overall Improvement % Improvement: 100 Objective Objective/Function: - R Hallpike CATSIB 120/120 FGA 24 Goals Goal 1:: I HEP Goal Progress: Goal Met Goal 2:: Abolish dizziness Goal Progress: Goal Met Goal 3:: Test VOR and FGA once abolish dizziness if pt is still having unsteadiness Goal Progress: Goal Met Plan Plan: DC PT D/C Information Discharge Comments: DC PT to HEP d/c sentence: If there are questions or concerns regarding this patient's physical therapy, please feel free to call me at [phone]. Thank you for the referral of this patient. Sincerely, Yudy Huitron, MPT Balance/Gait/Functional tests Balance/Special Test Scores Functional Gait Assessment Score: 24 % Disability: 20.0000 CATSIB Score (Max score 120 seconds): 120 Dizziness Score: 0 Improvement % Improvement: 100
== END 2024-04-23 19:00 | disposition home or self-care (01) ==
LOC: PT 09:00
PROVIDERS: PCP Family Medicine; Referring Provider Family Medicine; Visit Provider Family Medicine
DX: R42 Dizziness and giddiness (principal)
CPT/HCPCS: 97110; 97161; 97530

== ENCOUNTER → 2025-04-08 | Outpatient (CLI) | payer MEDICARE, OTHER, SELFPAY ==
--- OUTSIDE RECORDS SUMMARY | 2025-04-08 08:03 | XMS RPT_ITS | CCD ---
Author Organization [facility] Providers Care Primary Clinician Name Role Phone [place] CLOTH BLEACHING SUPERVISOR, Payal K Unavailable Unavailable [place] L[place] Payal K Unavailable Unavailable Dr. Radha Whittaker Referring Provider Dr. Piotr Mix Attending Provider Dr. Mark Calabrese Primary Care Provider Dr. Mark Calabrese Primary Care Provider Dr. Mark Calabrese Referring Provider Dr. Piotr Mix Attending Provider Dr. Rogelio Calabrese Primary Care Provider Dr. Rogelio Calabrese Referring Provider Radha Stinson MD Primary Care Provider RADHA STINSON Primary Care Unavailable Rogelio Calabrese Referring Unavailable Piotr Mix Attending Unavailable Rogelio Calabrese Primary Care Unavailable Rogelio Calabrese Referring Unavailable Rogelio Calabrese Primary Care Unavailable Piotr Mix Attending Unavailable Rogelio Calabrese Referring Unavailable Rogelio Calabrese Primary Care Unavailable Piotr Mix Attending Unavailable Rogelio Calabrese Referring Unavailable Rogelio Calabrese Primary Care Unavailable Rogelio Calabrese Attending Unavailable Medications Current Medications Medication Drug Class(es) Dates Sig (Normalized) Sig (Original) acetaminophen 325 mg oral tablet (3 sources) Start: 07-28-2005 TYLENOL 325 MG TAB as needed 0 07/28/2005 Active aspirin 81 mg delayed release oral tablet (9 sources) Nonsteroidal Anti-inflammatory Drug Start: 11-29-2017 Aspirin (Adult Aspirin Regimen) 81 mg tablet,delayed release (/EC) Active PO November 29, 2017 1:00am Start: 07-28-2005 ASPIRIN 81 MG TAB Take one (1) tablet daily . 0 07/28/2005 Active ASPIRIN 81 MG [facility] ASPIRIN [id number] Diana Patel [employer] beta-carotene,A,-vits C,E/mins (OCUVITE ORAL) (3 sources) beta-carotene,A, -vits C,E/mins (OCUVITE ORAL) Take by mouth. Active blood sugar diagnostic (ONE TOUCH ULTRA TEST) IN VITRO Strp (3 sources) Start: 2006 blood sugar diagnostic (ONE TOUCH ULTRA TEST) IN VITRO Strp testing 4-5 times daily 450 4 04/20/2007 Active Calcium (3 sources) Phosphate Binder, Calcium Start: 2005 CALCIUM 600 600 MG TAB Take one(1) tablet daily. 0 07/05/2006 Active cholecalciferol 0.025 mg oral tablet (4 sources) Vitamin D Start: 2020 take 25 ug by mouth once daily Cholecalciferol (Vitamin D3) Active 25 MCG PO DAILY January 26, 2021 12:00am estradiol 0.1 mg/ml vaginal cream (3 sources) Estrogen Start: 2008 estradiol(ESTRACE 0.01% (0.1 MG/G) VAGINAL CREAM) use ut dict one or 2 x weekly 90 0 03/16/2009 Active Flash Glucose Sensor (Freestyle Artis 2 Sensor) kit (4 sources) Start: 2020 Flash Glucose Sensor (Freestyle Artis 2 Sensor) kit Active 0 .ROUTE .MEDSUPPLY May 25, 2021 12:00am As directed 3 ml insulin glargine 100 unt/ml pen injector (20 sources) Insulin Analogue Start: 2022 End: 2022 Insulin Glargine (Lantus Solostar U-100 Insulin) 100 unit/mL (3 mL) insulin pen Active 10 UNIT SC EVERY MORNING February 14, 2023 10:43am Start: 01-26-2021 End: 01-26-2021 Insulin Glargine (Lantus U-1 00 Insulin) 100 unit/mL solution Discontinued 19 UNIT SC daily January 26, 2021 8:31am January 26, 2021 9:18am Start: 01-26-2021 End: 02-14-2023 Insulin Glargine (Lantus Griselda ostar U-100 Insulin) 100 unit/mL (3 mL) insulin pen Discontinued 15 UNIT SC EVERY MORNING January 16, 2023 1:24pm February 14, 2023 10:22am Start: 06-12-2018 End: 01-26-2021 Insulin Glargine (Lantus Griselda ostar U-100 Insulin) 100 unit/mL (3 mL) insulin pen Discontinued 26 UNIT SC DAILY June 12, 2018 12:00am January 26, 2021 9:17am Start: 11-29-2017 End: 01-26-2021 Insulin Glargine (Lantus U-1 00 Insulin) 100 unit/mL solution Discontinued 26 UNIT SC daily November 29, 2017 1:00am January 26, 2021 8:32am Start: 03-05-2016 End: 11-29-2017 inject 21 [IU] by subcutaneous injection at bedtime Insulin Glargine Discontinued 21 UNITS SQ AT BEDTIME March 05, 2016 12:00am November 29, 2017 3:44pm Start: 08-21-2014 insulin glargi ne (LANTUS) 100 unit/mL injection 20 units at bedtime 1 Vial 11 08/21/2014 Active LANTUS 100 UNIT/ ML SOLN 26 U INSULIN GLARGINE [id number] Diana Patel LPN 3 ml insulin lispro 100 unt/ml pen injector (20 sources) Insulin Analogue Start: 02-14-2023 Insulin Lispr o (Humalog Kwikpen Insulin) 100 unit/mL insulin pen Active 12 UNIT SC THREE TIMES A DAY February 14, 2023 10:43am DOES SLIDING SCALE Start: 01-26-2021 End: 02-14-2023 Insulin Lispro (Humalog Kwik pen Insulin) 100 unit/mL insulin pen Discontinued 15 UNIT SC THREE TIMES A DAY December 29, 2022 12:58pm February 14, 2023 10:22am Start: 06-12-2018 End: 01-26-2021 Insulin Lispro (Humalog Kwik pen Insulin) 100 unit/mL insulin pen Discontinued 0 SC .COMPLEX June 12, 2018 12:00am January 26, 2021 9:20am up to 25 units daily with sliding scale SC Start: 11-29-2017 End: 11-22-2021 Insulin Lispro (Humalog U-10 0 Insulin) 100 unit/mL solution Discontinued 0 SC daily November 29, 2017 1:00am November 22, 2021 9:42am per sliding scale SC QDAY Start: 06-15-2016 Insulin Lispro , Human, (HUMALOG KWIKPEN) 100 unit/mL inpn as directed up to 30 units daily 15 mL 11 06/15/2016 Active Start: 03-05-2016 End: 11-29-2017 Insulin Lispro Discontinued 0 - 100 UNITS SQ THREE TIMES A DAY March 05, 2016 12:00am November 29, 2017 3:44pm HUMALOG 100 UNIT /ML SOLN sliding scale INSULIN LISPRO [id number] Diana Patel LPN lutein 20 mg / zeaxanthin 1 mg oral capsule (2 sources) Start: 10-24-2023 take 1 capsule by mouth once daily Lutein-Zeaxanthin Active 1 CAP PO DAILY October 24, 2023 1:00am Multivitamin preparation (4 sources) Start: 11-29-2017 take 1 tablet by mouth once daily Multivitamin Active 1 TABLET PO daily November 29, 2017 1:00am MULTIVITAMIN TAB (3 sources) Start: 12-21-2005 MULTIVITAMIN TAB Take one(1) tablet daily. 0 12/21/2005 Active naproxen sodium 220 mg oral tablet (3 sources) Nonsteroidal Anti-inflammatory Drug Start: 07-28-2005 ALEVE 220 MG TAB 0 07/28/2005 Active nitrofurantoin, macrocrystals 25 mg / nitrofurantoin, monohydrate 75 mg oral capsule (3 sources) Nitrofuran Antibacterial Start: 06-20-2024 End: 06-25-2024 take 1 capsule by mouth twice daily nitrofurantoin monohydrate and macrocrystal (MACROBID) 100 mg capsule Indications: Recurrent UTI (urinary tract infection) Take 1 capsule by mouth two times a day for 5 days. 10 capsule 06/20/2024 06/25/2024 Active Pen Needle, Diabetic (4 sources) Start: 01-26-2021 Pen Needle, Diabetic Active 0 EACH .ROUTE .MEDSUPPLY 50 January 26, 2021 12:00am As directed Completed/Discontinued Medications Medication Drug Class(es) Dates Sig (Normalized) Sig (Original) Insulin Syringe-Needle U-100 (4 sources) Start: 01-26-2021 End: 07-19-2022 Insulin Syringe-Needle U-100 Discontinued 0 EACH .ROUTE .MEDSUPPLY January 26, 2021 12:00am July 19, 2022 8:29am As directed Start: 01-26-2021 Insulin Syring e-Needle U-100 Active 0 EACH .ROUTE .MEDSUPPLY January 26, 2021 12:00am As directed losartan potassium 25 mg oral tablet (4 sources) Angiotensin 2 Receptor Melani Start: 07-13-2021 End: 11-22-2021 take 25 mg by mouth once daily Losartan Discontinued 25 MG PO DAILY July 13, 2021 12:00am November 22, 2021 5:55pm lovastatin 20 mg oral tablet (17 sources) HMG-CoA Reductase Inhibitor Start: 03-05-2016 End: 06-12-2018 take 25 mg by mouth once daily Lovastatin Discontinued 25 MG PO DAILY March 05, 2016 12:00am June 12, 2018 8:46am Start: 07-23-2014 End: 06-20-2023 take 1 tablet by mouth once daily lovastatin (MEVACOR) 20 mg tablet Take 1 tablet by mouth once daily. 90 tablet 4 07/23/2014 Active MULTIPLE VITAMINS-MINERALS (2 sources) MULTIVITAMIN BIRGIT LTS TABS MULTIPLE VITAMINS-MINERALS [id number] Diana Patel LPN ondansetron 4 mg disintegrating oral tablet (4 sources) Serotonin-3 Receptor Antagonist Start: 016 End: 018 take 4 mg by mouth every eight hours as needed Ondansetron Discontinued 4 MG PO EVERY 8 HOURS NEEDED March 05, 2016 12:00am November 29, 2017 3:45pm ramipril 5 mg oral capsule (20 sources) Angiotensin Converting Enzyme Inhibitor Start: 022 End: 022 take 2.5 mg by mouth once daily Ramipril Discontinued 2.5 MG PO DAILY November 23, 2021 1:00am April 18, 2022 5:02pm Start: 07-23-2014 End: 06-20-2023 take 1 capsule by mouth once daily ramipril (ALTACE) 5 mg capsule Indications: Type I (juvenile type) diabetes mellitus without mention of complication, uncontrolled Take 1 capsule by mouth once daily. 90 capsule 4 07/23/2014 Active levothyroxine sodium 0.1 mg oral tablet (20 sources) l-Thyroxine Start: 03-05-2016 End: 10-24-2023 take 100 ug by mouth once daily Levothyroxine Discontinued 100 MCG PO DAILY 90 January 18, 2023 12:55pm October 24, 2023 11:14am Start: 07-23-2014 levothyroxine (SYNTHROID) 100 mcg tablet 6 & 1/2 pills each week 90 tablet 4 07/23/2014 Active Problems Active Problems Problem Classification Problem Date Documented Date Episodic/Chronic Chronic kidney disease (1 source) Chronic kidney disease; Translations: [Chronic kidney disease, stage 3a] Onset: 11-12-2024 Diabetes mellitus with complications (12 sources) Polyneuropathy due to type 1 diabetes mellitus; Translations: [Type 1 diabetes mellitus with diabetic polyneuropathy] Onset: 11-12-2024 Chronic Diabetes mellitus without complication (14 sources) Type 1 diabetes mellitus; Translations: [Diabetes mellitus] Onset: 03-16-2017 03-16-2017 Chronic Disorders of lipid metabolism (8 sources) Mixed hyperlipidemia; Translations: [Mixed hyperlipidemia] Onset: 11-12-2024 Chronic Essential hypertension (8 sources) Benign essential hypertension; Translations: [Essential (primary) hypertension] Onset: 11-12-2024 Chronic Genitourinary symptoms and ill-defined conditions (1 source) Increased frequency of urination; Translations: [Frequency of micturition] 06-20-2024 Episodic Nutritional deficiencies (1 source) Vitamin D deficiency, unspecified; Translations: [Vitamin D deficiency, unspecified] Onset: 11-12-2024 Chronic Other endocrine disorders (3 sources) Carcinoid syndrome; Translations: [Carcinoid syndrome] Onset: 01-10-2019 01-10-2019 Chronic Thyroid disorders (14 sources) Hypothyroidism; Translations: [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 [place] [address] OFFICE VISIT Date of Service: 11/12/24 MR#: [id number] Acct: [id number] Name: LOU PLEITEZ Rep #: [id number] : 1950 Provider: Abigail Laws Age/Sex: 74/F Location: [facility] [place] Status: Signed Intake Vital Signs 05/30/24 08:50 11/12/24 09:21 Height 5 ft 5 in 5 ft 5 in Weight: 152 lb 154 lb BMI 25.2 25.6 BP 128/72 H 136/80 H Blood Pressure Location Lt brachial Lt brachial Position Sitting Sitting Pulse 68 84 Pulse Source Monitor Monitor Pulse Oximetry (%) 97 96 Oxygen Delivery Method room air room air Intake Visit Reasons: 4 M FU Chief Complaint: Diabetes Is patient in pain?: Yes (Left Hand pain) Pain scale (1-10): 6 Allergies No Known Allergies Allergy (Verified 11/12/24 09:27) Medications ???Medication ???Instructions ???Recorded ???Confirmed ???Type multivitamin 1 tab PO QDAY 11/29/17 11/12/24 Hi story cholecalciferol (vitamin D3) 25 25 mcg PO DAILY 01/26/21 11/12/24 History mcg (1,000 unit) tablet pen needle, diabetic 31 gauge x #50 ea 01/26/21 11/12/24 History 12/22 flash glucose sensor (FreeStyle #1 ea 05/25/21 11/12/24 Rx Artis 2 Sensor kit) lutein 20 mg-zeaxanthin 1,000 mcg 1 cap PO DAILY 10/24/23 11/12/24 History capsule aspirin 81 mg tablet,delayed 81 mg PO DAILY 02/13/24 11/12/24 H istory release (Adult Aspirin Regimen) blood sugar diagnostic (FreeStyle #100 ea 05/20/24 11/12/24 Rx Precision Joey Strips) Omnipod 5 G6 Pods (Gen 5) (insulin #10 ea 05/30/24 11/12/24 Rx pump cart,automated,BT) insulin pump cartridge,automate d #1 ea 08/22/24 02/04/25 Rx dose,BT with controller subcutaneous (Omnipod 5 G6 Intro Kit (Gen 5) subcutaneous cartridge with controller) lovastatin 20 mg tablet 20 mg PO DAILY #90 tabs 07/09/24 0 11/12/24 Rx Humalog KwikPen Insulin 100 12 unit (0.12 mL) subcut TID #30 m L 11/12/24 11/12/24 Rx unit/mL subcutaneous (insulin lispro) Lantus Solostar U-100 Insulin 100 10 unit (0.1 mL) subcut QAM #15 m L 11/12/24 11/12/24 Rx unit/mL (3 mL) subcutaneous pen (insulin glargine) levothyroxine 100 mcg tablet 100 mcg PO DAILY #90 tabs 11/12/24 11/12/24 Rx pen needle, diabetic 32 gauge x #450 ea 11/12/24 11/12/24 Rx 5/32 (BD Ultra-Fine Jeanine Pen Needle) ramipril 10 mg capsule 10 mg PO QDAY #90 caps 11/12/24 Rx Have you fallen in the past year?: No PFSH Medical History Type 1 diabetes mellitus with stage 3a chronic kidney disease Diabetes mellitus type 1 Benign essential hypertension Mixed hyperlipidemia 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 A1C is 9.2% She is taking basal bolus. She is using Artis 2 CGM. Upload shows 36% time in range, occasional blood sugars in the 60s. Sugars get higher as the day progresses. She is surprised by the A1C even though she can review her sugars on her reader. She is worried about lows. I wrote for Omnipod pump last visit. She states it would cost her $250/month She has hypothyroidism and is taking levothyroxine. She is due for labs next month. ROS Const Constitutional: No fatigue or weight change ENT ENT: No dizziness/vertigo Cardio Cardiology: No chest pain at rest, chest pain with exertion, shortness of breath or palpitations Skin Skin: No wounds Endo Endocrine: No fatigue or weight change Exam Const General: cooperative, healthy appearing, comfortable, no acute distress, well developed and not cushingoid Nutritional Appearance: well nourished Orientation: alert, awake and oriented x3 HENMT Head: normal to inspection Ears: hearing grossly normal bilaterally Nose: external nose normal Mouth: oral mucosae normal Eyes General: appearance normal, both eyes and all related structures Alignment and Position: alignment normal Periorbital: periorbital findings normal Eyelids: eyelids normal Conjunctivae: conjunctivae normal Neck Neck: normal vi (more content not included)... Normal [facility] 06-22-2024 [facility] Telephone ([facility]) -------- LOU PLEITEZ ([id number]) 1950 F Date Time Provider Department 06/22/24 LISANDRA BEASLEY [facility] During your visit today, we recorded the following information about you: Lisandra Beasley APRN.[facility] 06/22/2024 8:08 AM Signed Patient's urine culture did not grow any significant bacteria. Patient can continue the antibiotic if it seems to be helping. If patient symptoms or not improving she needs to follow-up with her primary care. Mercedes Hilario MA 06/22/2024 8:23 AM Signed Left message for patient to return call. DONY Jones Melissa, MA 06/22/2024 11:21 AM Signed Notified by NOC. Mercedes Hilario MA Allergies As of Date: 06/22/2024 (No Known Allergies) Date Reviewed: 06/20/2024 Reviewed by: Rohini Thomas MA - Fully Assessed Reason for Visit: Results [95] Prescriptions as of 06/22/2024 - beta-carotene,A,-v its C,E/mins (OCUVITE ORAL) Take by mouth. - nitrofurantoin monohydrate and macrocrystal (MACROBID) 100 mg capsule Take 1 capsule by mouth two times a day for 5 days. - Insulin Lispro, Human, (HUMALOG KWIKPEN) 100 unit/mL inpn as directed up to 30 units daily - insulin needles, DISPOSABLE, (PEN NEEDLE) 31 gauge x 5/16 ndle use 5 times daily - Insulin Syringe-Needle U-100 (BD INSULIN SYRINGE UF II) 0.5 mL 31 gauge x 5/16 syrg Use once daily - insulin glargine (LANTUS) 100 unit/mL injection 20 units at bedtime - levothyroxine (SYNTHROID) 100 mcg tablet 6 AND 1/2 pills each week - lovastatin (MEVACOR) 20 mg tablet Take 1 tablet by mouth once daily. - ramipril (ALTACE) 5 mg capsule Take 1 capsule by mouth once daily. - estradiol(ESTRACE 0.01% (0.1 MG/G) VAGINAL CREAM) use ut dict one or 2 x weekly - blood sugar diagnostic (ONE TOUCH ULTRA TEST) IN VITRO Strp testing 4-5 times daily - CALCIUM 600 600 MG TAB Take one(1) tablet daily. - MULTIVITAMIN TAB Take one(1) tablet daily. - ASPIRIN 81 MG TAB Take one (1) tablet daily . - ALEVE 220 MG TAB - TYLENOL 325 MG TAB as needed Problem List As Of Date 06/22/2024 Noted Resolved Uncontrolled type 1 diabetes mellitus (HCC) [IM* HYPOTHYROIDISM NOS [E03.9] Carcinoid syndrome (HCC) [E34.0] 01/10/2019 Encounter Status:Closed by MERCEDES HILARIO on 06/22/24 Normal [facility] Bacteria Ur Culton 4 Bacteria identified Cx Nom (U) ORGANISM ID: 1 <10,000 CFU/ml Normal urogenital kirti Normal [facility] Comment on above: Performed By: #### 6 30-4 #### [facility] CLIA [id number] [address] [place], [place] [address] [place] CNOVon 06-20-2024 CNOV Office Visit ([facility]) -------- GRICELDALOU J ([id number]) 1950 F Date Time Provider Department 06/20/24 11:45 AM LISANDRA BEASLEY [facility] During your visit today, we recorded the following information about you: Temperature Pulse Respiration Blood pressure 97.8 degrees 74/minute 18/minute 134/85 Weight 70.9 kg Lisandra Beasley APRN.[employer] PACKING MACHINE OPERATOR 06/20/2024 11:48 AM Signed CC: Patient presents with: UTI: Frequency, hematuria x3 days HPI Lou Pleitez is a 73 year old female who presents with complaint of possible UTI. These symptoms have been present for last night . Associated symptoms: frequency and hematuria Denies: fever, chills, sweats, abdominal pain, and flank pain Treatments: nothing The ROS was otherwise negative. PMH, Medications, labs, allergies, and recent past visits with PCP were reviewed and updated as able. PHYSICAL EXAM: BP 134/85 Pulse 74 Temp 36.6 ?C (97.8 ?F) Resp 18 Wt 70.9 kg (156 lb 4.9 oz) SpO2 98% General: Well appearing and alert CV: Regular rate and rhythm without obvious murmur Lungs: clear to auscultation bilaterally Back: straight and symmetric Abdomen: soft, nontender, nondistended PAST MEDICAL HISTORY No date: Type I (juvenile type) diabetes mellitus without mention of complication, uncontrolled No date: Unspecified hypothyroidism PAST SURGICAL HISTORY No date: DELIVERY ONLY Comment: , low cervical x2 ALLERGIES Patient has no known allergies. MEDICATIONS beta-carotene,A,-v its C,E/mins (OCUVITE ORAL) Take by mouth. Insulin Lispro, Human, (HUMALOG KWIKPEN) 100 unit/mL inpn as directed up to 30 units daily insulin needles, DISPOSABLE, (PEN NEEDLE) 31 gauge x 5/16 ndle use 5 times daily Insulin Syringe-Needle U-100 (BD INSULIN SYRINGE UF II) 0.5 mL 31 gauge x 5/16 syrg Use once daily insulin glargine (LANTUS) 100 unit/mL injection 20 units at bedtime (Patient taking differently: 26 units at bedtime) levothyroxine (SYNTHROID) 100 mcg tablet 6 AND 1/2 pills each week lovastatin (MEVACOR) 20 mg tablet Take 1 tablet by mouth once daily. ramipril (ALTACE) 5 mg capsule Take 1 capsule by mouth once daily. blood sugar diagnostic (ONE TOUCH ULTRA TEST) IN VITRO Strp testing 4-5 times daily CALCIUM 600 600 MG TAB Take one(1) tablet daily. MULTIVITAMIN TAB Take one(1) tablet daily. ALEVE 220 MG TAB TYLENOL 325 MG TAB as needed nitrofurantoin monohydrate and macrocrystal (MACROBID) 100 mg capsule Take 1 capsule by mouth two times a day for 5 days. estradiol(ESTRACE 0.01% (0.1 MG/G) VAGINAL CREAM) use ut dict one or 2 x weekly (Patient not taking: Reported on 06/20/2024) ASPIRIN 81 MG TAB Take one (1) tablet daily . FAMILY HISTORY Problem Relation Age of Onset Heart Father Cancer Brother Lung Ca Cancer Brother Liver Ca Social History Tobacco Use Smoking status: Former Smokeless tobacco: Never Substance Use Topics Alcohol use: Yes Comment: rare ASSESSMENT/PLAN: 1. Urinary frequency - ICD9: 788.41, ICD10: R35.0 (primary diagnosis) - UA DIP, URINE (POC) - URINE CULTURE 2. Recurrent UTI (urinary tract infection) - ICD9: 599.0, ICD10: N39.0 - NITROFURANTOIN MONOHYDRATE AND MACROCRYSTAL 100 MG ORAL CAP Prescription instructions reviewed with patient as applicable. Potential red flag symptoms discussed with the patient. Reviewed appropriate action plan to take if red flag symptoms occur. Patient agreeable to treatment plan. Lisandra Beasley APRN.[employer]BAC[employer] PACKING MACHINE OPERATOR Allergies As of Date: 06/20/2024 (No Known Allergies) Date Reviewed: 06/20/2024 Reviewed by: Rohini Thomas MA - Fully Assessed Reason for Visit: UTI [116] Cmt: Frequency, hematuria x3 days Primary Visit Diagnosis:Urinary frequency [R35.0] Other Visit Diagnosis:Recurren t UTI (urinary tract infection) [N39.0] Order(s):UA DIP, URINE (POC) [[id number]] Order #: [id number]. #:[id number] URINE CULTURE [SQURCUL] Order #: [id number]. #:[id number] nitrofurantoin monohydrate and macrocrystal (MACROBID) 100 mg capsuleTake 1 capsule by mouth two times a day for 5 days.Disp: 10 capsuleRfl: 0 Prescriptions as of 06/20/2024 - beta-carotene,A,-v its C,E/mins (OCUVITE ORAL) Take by mouth. - nitrofurantoin monohydrate and macrocrystal (MACROBID) 100 mg capsule Take 1 capsule by mouth two times a day for 5 days. - Insulin Lispro, Human, (HUMALOG KWIKPEN) 100 unit/mL inpn as directed up to 30 units daily - insulin needles, DISPOSABLE, (PEN NEEDLE) 31 gauge x 5/16 ndle use 5 times daily - Insulin Syringe-Needle U-100 (BD INSULIN SYRINGE UF II) 0.5 mL 31 gauge x 5/16 syrg Use once daily - insulin glargine (LANTUS) 100 unit/mL injection 20 units at bedtime - levothyroxine (SYNTHROID) 100 mcg tablet 6 AND 1/2 pills each week - lovastatin (MEVACOR) 20 mg tablet Take 1 tablet by mouth once daily. - ramipril (ALTACE) 5 mg ca (more content not included)... Normal [facility] UA DIP, URINE (POC)on 2023 BILIRUBIN UA (POCT) Negative Negative [facility] CLARITY UA (POCT) Clear [facility] COLOR UA (POCT) Yellow [facility] GLUCOSE UA (POCT) Negative Negative mg/dL [facility] Hemoglobin Ql (U) Large Abnormal Negative [facility] Interpretation and review of laboratory results Abnormal [facility] KETONE UA (POCT) Negative Negative mg/dL [facility] LEUKOCYTES UA (POCT) Trace Abnormal Negative [facility] NITRITE UA (POCT) Negative Negative [facility] PH UA (POCT) 6.5 4.5 - 8.0 [facility] Protein Ql (U) 100 mg/dL Abnormal Negative [facility] SPECIFIC GRAVITY UA (POCT) 1.015 1.005 - 1.030 [facility] UROBILINOGEN UA (POCT) 0.2 Meseret l E.U./dL [facility] Location:[address], [place], [place], [address] [place] [address] POINT OF CARE [facility] Endocrinology Visit Reporton 05-30-2024 Endocrinology Visit Report [facility] [address] [place] [address] OFFICE VISIT Date of Service: 05/30/24 MR#: [id number] Acct: [id number] Name: LOU PLEITEZ Rep #: [id number] : 1950 Provider: Abigail Laws Age/Sex: 73/F [facility] [place] Status: Signed Intake Vital Signs 02/13/24 09:54 05/30/24 08:50 Height 5 ft 5 in 5 ft 5 in Weight: 149 lb 152 lb BMI 24.7 25.2 BP 137/82 H 128/72 H Blood Pressure Location Lt brachial Lt brachial Position Sitting Sitting Pulse 64 68 Pulse Source Monitor Monitor Temp 98 F Temp Source Temporal Pulse Oximetry (%) 97 97 Oxygen Delivery Method room air room air Intake Visit Reasons: 3 M FU, RS 05/21 Chief Complaint: Diabetes Radial Router Operator Required: No Accompanied by: Self Is patient in pain?: No Allergies No Known Allergies Allergy (Verified 05/30/24 08:54) Medications ???Medication ???Instructions ???Recorded ???Confirmed ???Type multivitamin 1 tab PO QDAY 11/29/17 05/30/24 History cholecalciferol (vitamin D3) 25 25 mcg PO DAILY 01/26/21 05/30/24 History mcg (1,000 unit) tablet pen needle, diabetic 31 gauge x #50 ea 01/26/21 05/30/24 History 3/16 flash glucose sensor (FreeStyle #1 ea 05/25/21 05/30/24 Rx Artis 2 Sensor kit) lovastatin 20 mg tablet 20 mg PO DAILY #90 tabs 06/20/23 05/30/24 Rx lutein 20 mg-zeaxanthin 1,000 mcg 1 cap PO DAILY 10/24/23 05/30/24 History capsule aspirin 81 mg tablet,delayed 81 mg PO DAILY 02/13/24 05/30/24 History release (Adult Aspirin Regimen) levothyroxine 100 mcg tablet 100 mcg PO DAILY 02/13/24 05/30/24 History ramipril 10 mg capsule 10 mg PO QDAY 02/13/24 05/30/24 History Humalog KwikPen Insulin 100 12 unit (0.12 mL) subcut TID #30 mL 04/05/24 05/30/24 Rx unit/mL subcutaneous (insulin lispro) Lantus Solostar U-100 Insulin 100 10 unit (0.1 mL) subcut QAM #15 mL 04/05/24 05/30/24 Rx unit/mL (3 mL) subcutaneous pen (insulin glargine) blood sugar diagnostic (FreeStyle #100 ea 05/20/24 05/30/24 Rx Precision Joey Strips) pen needle, diabetic 32 gauge x #450 ea 05/20/24 05/30/24 Rx 5/32 (BD Ultra-Fine Jeanine Pen Needle) Omnipod 5 G6 Pods (Gen 5) (insulin #10 ea 05/30/24 05/30/24 Rx pump cart,automated,BT) insulin pump cartridge,automate d #1 ea 05/30/24 05/30/24 Rx dose,BT with controller subcutaneous (Omnipod 5 G6 Intro Kit (Gen 5) subcutaneous cartridge with controller) Have you fallen in the past year?: No PFSH Medical History Type 1 diabetes mellitus with stage 3a chronic kidney disease Diabetes mellitus type 1 Benign essential hypertension Mixed hyperlipidemia 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 A1C is 8.2% She is taking basal bolus. She is using Artis 2 CGM. Upload shows highs post meal and lows at night. She would like to transition to insulin pump. ROS Const Constitutional: No anorexia, excessive sweating, malaise, night sweats, weight change or change in appetite Eyes Eyes: No change in vision ENT ENT: No hearing loss, nasal congestion or difficulty swallowing Cardio Cardiology: No chest pain at rest, excessive sweating, shortness of breath, dyspnea on exertion, irregular heart rhythm or palpitations Musc Musculoskeletal: No abnormal gait, joint pain, numbness or tingling Neuro Neurology: No abnormal gait, memory loss, numbness or tingling Psych Psychiatric: No change in appetite, No memory loss and No Thoughts of harming yourself/Others Resp Respiratory: No cough, chest congestion or shortness of breath Gastro GI: No abdominal pain, constipation, diarrhea or difficulty swallowing Genitourinary-Fema le: No burning urination Skin Skin: No hair loss in leg, itchy eyes, rash or skin ulcer Endo Endocrine: No excessive sweating or weight change Aller/Imm Allergy/Immunologi c: No itchy eyes Exam Const General: cooperative, healthy appearing, comfortable, no acute distress, well developed and not cushingoid (more content not included)... Normal [facility] PT D/C Summary (1)on 024 PT D/C Summary (1) [facility] Physical [facility] [address] [place] [address]. [address] [place] [address] / REHABILITATION SERVICES DISCHARGE SUMMARY MR#: [id number] Acct: [id number] Name: LOU PLEITEZ Rep #: [id number] : 1950 73 From: Yudy Huitron MPT Referring Dr.: Dr. Rogelio Calabrese MD Status: REG RCR Insurance: MEDICARE PART A B [facility] Discharge Summary D/C summary: It has been my pleasure to treat LOU PLEITEZ referred by Dr. Rogelio Calabrese MD, with the diagnosis of vertigo for a total of 3 visit(s). Discharge Date: 04/23/24 Please see the following information for a summary of their discharge status. Subjective Subjective: Pt has no dizziness. Overall Improvement % Improvement: 100 Objective Objective/Function : - R Hallpike CATSIB 120/120 FGA 24 Goals Goal 1:: I HEP Goal Progress: Goal Met Goal 2:: Abolish dizziness Goal Progress: Goal Met Goal 3:: Test VOR and FGA once abolish dizziness if pt is still having unsteadiness Goal Progress: Goal Met Plan Plan: DC PT D/C Information Discharge Comments: DC PT to HEP d/c sentence: If there are questions or concerns regarding this patient's physical therapy, please feel free to call me at [phone]. Thank you for the referral of this patient. Sincerely, MITRA Sharma Balance/Gait/Funct ional tests Balance/Special Test Scores Functional Gait Assessment Score: 24 % Disability: 20.0000 CATSIB Score (Max score 120 seconds): 120 Dizziness Score: 0 Improvement % Improvement: 100 04/23/24 0937 CC: Dr. Rogelio Calabrese MD Signed Normal [facility] Inital Evaluation (1) - PTon 04-10-2024 Inital Evaluation (1) - PT [facility] [address] [place] [address] [address] [place] [address] / REHABILITATION SERVICES INITIAL EVALUATION MR#: [id number] Acct: [id number] Name: LOU PLEITEZ Rep #: [id number] : 1950 73 From: Yudy MANRIQUEZ Referring Dr.: Dr. Rogelio Calabrese MD Status: REG RCR Insurance: MEDICARE PART A B [facility] Patient's Visit Information Visit Information Visit Information: LOU PLEITEZ is a 73 year old F referred to Physical Therapy by Dr. Rogelio Calabrese MD with a diagnosis of vertigo. Date of Evaluation: 04/10/24 Physical Therapist: Yudy Huitron MPT Visit Plan Frequency: 2x /Week Duration: 4 Weeks Plan: 1-2X/ week for Hallpike testing and tx and possible VOR and balance testing Subjective Subjective: She was really bad when she moved into her new house a few years ago and lately it is just creeping back. She was in here before and they did not think it was dizziness. She is now dizzy. Turning over in bed she is dizzy. She has the sensation if she looks ups. She was picking up something off the floor and bent over and continued to go over and fell. She adjusted meds...BP but does not think that was it. It is to the R when roll over and she spins and it lasts a few seconds and then it goes away. At the hairdresser she put her head back and tried to get right up and she was very unsteady. She has no nausea. Objective Objective: + R Hallpike for torsional nystagmus. Treated with R Eply. Pt had nystagmus when rolled head to the L that lasted about 15 seconds and then felt better once sat up. Re tested R Hallpike and pt felt like it could come back but did not. Treated with R Eply anyway. Retested R Hallpike for a third time and no dizzy feeling or nystagmus...st pt up Pt did feel off walking out of clinic once the crystal were put back in place. Balance/Special Test Scores Dizziness Score: 22 Goals Goal 1:: I HEP Goal Time Frame: 2-4 Weeks Goal 2:: Abolish dizziness Goal Time Frame: 2-4 Weeks Goal 3:: Test VOR and FGA once abolish dizziness if pt is still having unsteadiness Goal Time Frame: 2-4 Weeks Rehabilitation Potential Rehabilitation Potential: Good Anticipated Interventions Patient/Client Instruction: Educate patient on: Condition and Plan of Care For the Purpose of:: To improve ability to perform ADL's, To increase tolerance to activity/condition /position, To improve gait and locomotor functions, To improve endurance, To improve balance and To improve safety with gait Therapeutic Exercise to Include: Endurance training, Balance training, Coordination, Postural training, Flexibilty training, Gait and locomotor training, Neuromotor development and Active ROM For the Purpose of:: To improve ability to perform ADL's, To improve gait and locomotor functions, To improve balance and To improve safety with gait Functional Training to Include: Gait training For the Purpose of:: To improve gait and locomotor functions Text: Thank you for the opportunity to evaluate your patient. For Medicare and Medicare HMO plans, please review the plan of care and approve it. It will need to be FAXED BACK to us at [phone] for Medicare purposes. For Medicare only, by signing this I certify the plan of care. Please let me know if there are questions or concerns regarding this plan of care. Physician Signature: Date: ____ 04/10/24 1859 CC: Dr. Rogelio Calabrese MD Signed Normal [facility] Serum or plasma thyroid stim ulating hormone (TSH) measurement (units/volume)Ordered By: Rogelio Calabrese on 01-29-2024 TSH Qn 0.52 uIU/mL 0.358-3.74 [facility] Thin prep Papanicolaou smear with manual screeningOrdered By: Rogelio Calabrese on 01-29-2024 Thin prep Papanicolaou smear with manual screening 1.39 ng/dL 0.76-1.46 [facility] Whole blood hemoglobin A1c/t otal hemoglobin ratio (mass fraction)Ordered By: Rogelio Calabrese on 01-29-2024 HbA1c (Bld) [Mass fraction] 8.4 % 3.8-5.6 [facility] Comment on above: Normal < 5.7 % Predi abetic 5.7 - 6.4 % Diabetic >or= 6.5 % Please note range changes. Absolute lymphocyte countOrd ered By: Mark Calabrese on 12-27-2023 Lymphocytes Auto (Unsp spec) [#/Vol] 2.38 10*3/uL 0.83-4.51 [facility] Automated lymphocyte count a s percentage of total leukocytesOrdered By: Mark Calabrese on 12-27-2023 Lymphocytes/100 WBC Auto (Unsp spec) 31.1 % 19-41 [facility] Basophil percentageOrdered B y: Mark Calabrese on 12-27-2023 Basophils/100 WBC (Bld) 1.6 % 0-1 [facility] Bilirubin [Mass/Vol] 0.50 mg/dL 0.20-1.00 [facility] Comment on above: For patients on eltr ombopag therapy, use of Dimension [place] TBIL is not recommended. Chloride [Moles/Vol] 101 mmol/L 98-107 [facility] Cholesterol [Mass/Vol] 153 mg/dL <200 [facility] Comment on above: <200 mg/dL Desirable 200-240 mg/dL Borderline >240 mg/dL High Risk Eosinophils/100 WBC (Bld) 3.3 % 0-5 [facility] Glucose [Mass/Vol] 202 mg/dL 74-106 [facility] Comment on above: Glucose result great er than or equal to 200 mg/dLsuggests DIABETES MELLITUS per A.D.A. criteria. Hemoglobin (Bld) [Mass/Vol] 13.6 g/dL 12.0-15.0 [facility] Monocytes/100 WBC (Bld) 6.0 % 0-10 [facility] Neutrophils (Bld) [#/Vol] 4.4 10*3/uL 2.0-7.7 [facility] Neutrophils/100 WBC (Bld) 57.7 % 47-70 [facility] Potassium [Moles/Vol] 4.5 mmol/L 3.5-5.1 [facility] Protein [Mass/Vol] 6.9 g/dL 6.4-8.2 [facility] Sodium [Moles/Vol] 136 mmol/L 136-145 [facility] Triglyceride [Mass/Vol] 85 mg/dL <199 [facility] Comment on above: The drugs N-Acetylcy steine and Metamizole may falsely depress this assay.Serum Triglycerides Reference Interval Normal <150 mg/dL Borderline high 150 - 199 mg/dL High 200 - 499 mg/dL Very High > or = 500 mg/dL WBC (Bld) [#/Vol] 7.7 10*3/uL 4.4-11.0 [facility] Determination of erythrocyte mean corpuscular volume (MCV)Ordered By: Mark Calabrese on 12-27-2023 MCV (RBC) [Entitic vol] 87.2 fL 81-99 [facility] Erythrocyte distribution wid th ratioOrdered By: Mark Calabrese on 12-27-2023 Erythrocyte distribution width (RBC) [Ratio] 13.8 % 11.6-14.6 [facility] Erythrocyte distribution wid th standard deviationOrdered By: Mark Calabrese on 12-27-2023 Erythrocyte distribution width (RBC) [Entitic vol] 44.4 fL 35.1-43.9 [facility] Erythrocyte sedimentation ra teOrdered By: Mark Calabrese on 12-27-2023 ESR (Bld) [Velocity] 23 mm/h 0-30 [facility] Hematocrit Auto (Bld) [Volum e fraction]Ordered By: Mark Calabrese on 12-27-2023 Hematocrit (Bld) [Volume fraction] 42.3 % 37-47 [facility] Immature granulocytes/100 WB C Auto (Bld)Ordered By: Mark Calabrese on 12-27-2023 Immature granulocytes/100 WBC (Bld) 0.300 % 0.0-0.9 [facility] Comment on above: IG% - Immature Granu locytes (promyelocytes, myelocytes and metamyelocytes) > 1% indicates that a LEFT SHIFT is Present. Laboratory - Chemistry and C hemistry - challengeOrdered By: Mark Calabrese on 12-27-2023 Albumin/Globulin [Mass ratio] 1.0 {ratio} 0.9-2.4 [facility] ALP [Catalytic activity/Vol] 74 U/L 45-117 [facility] ALT [Catalytic activity/Vol] 17 U/L 13-56 [facility] Cholesterol in HDL [Mass/Vol] 77 mg/dL >40 [facility] Comment on above: The drugs N-Acetylcy steine and Metamizole may falsely depress this assay. Reference Range HDL <40 mg/dL Low HDL Cholesterol HDL >or= 60 mg/dL High HDL Cholesterol Cholesterol in LDL [Mass/Vol] 59 mg/dL 0-130 [facility] CO2 [Moles/Vol] 30.0 mmol/L 21.0-32.0 [facility] Cobalamin (Vitamin B12) [Mass/Vol] 1358 pg/mL 211-911 [facility] Globulin (S) [Mass/Vol] 3.4 g/dL 2.2-4.2 [facility] Magnesium [Mass/Vol] 2.3 mg/dL 1.6-2.6 [facility] Urea nitrogen/Creatinine [Mass ratio] 16.8 mg/mg 10-20 [facility] Laboratory - Hematology and Cell countsOrdered By: Mark Calabrese on 12-27-2023 MCH (RBC) [Entitic mass] 28.0 pg 27.0-32.0 [facility] MCHC (RBC) [Mass/Vol] 32.2 g/dL 32-36 [facility] Nucleated RBC/100 WBC (Bld) [Ratio] 0 % 0-5 [facility] Platelet mean volume (Bld) [Entitic vol] 12.1 fL 6.2-12.0 [facility] Platelets (Bld) [#/Vol] 249 10*3/uL 150-450 [facility] No Panel InformationOrdered By: Mark Calabrese on 12-27-2023 Estimated GFR (MDRD) Amer 74 mL/min >60 [facility] Comment on above: GFR Calc Estimated GFR (MDRD) Non-Af Amer 61 mL/min >60 [facility] Comment on above: Non- GFR Calc VLDL Cholesterol 17 mg/dL 5-40 [facility] RBC Auto (Bld) [#/Vol]Ordere d By: Mark Calabrese on 12-27-2023 RBC (Bld) [#/Vol] 4.85 10*6/uL 4.2-5.4 [facility] Serum or plasma calcium selvin urement (mass/volume)Ordered By: Mark Calabrese on 12-27-2023 Calcium [Mass/Vol] 9.4 mg/dL 8.5-10.1 [facility] Serum or plasma creatinine m easurement (mass/volume)Ordered By: Mark Calabrese on 12-27-2023 Creatinine [Mass/Vol] 0.95 mg/dL 0.55-1.02 [facility] Comment on above: The validity of the calculated GFR & GFRAA in patients over 70 years has not been determined. Clinical correlation is essential. Serum or plasma thyroid stim ulating hormone (TSH) measurement (units/volume)Ordered By: Mark Calabrese on 12-27-2023 TSH Qn 0.10 uIU/mL 0.358-3.74 [facility] Serum or plasma urea nitroge n measurement (mass/volume)Ordered By: Mark Calabrese on 12-27-2023 Urea nitrogen [Mass/Vol] 16 mg/dL 7-18 [facility] Thin prep Papanicolaou smear with manual screeningOrdered By: Markberkley Calabrese on 12-27-2023 Thin prep Papanicolaou smear with manual screening 3.5 g/dL 3.2-5.0 [facility] Thin prep Papanicolaou smear with manual screening 21 U/L 15-37 [facility] Thin prep Papanicolaou smear with manual screening 5 5-15 [facility] Thin prep Papanicolaou smear with manual screening 1.66 ng/dL 0.76-1.46 [facility] Laboratory - Hematology and Cell countson 10-24-2023 HbA1c (Bld) [Mass fraction] 10.4 % 4.2-6.3 [facility] Basophil percentageOrdered B y: Dr. Mix on 01-09-2023 Bilirubin [Mass/Vol] 0.50 mg/dL 0.20-1.00 [facility] Comment on above: For patients on eltr ombopag therapy, use of Dimension [place] TBIL is not recommended. Chloride [Moles/Vol] 104 mmol/L 98-107 [facility] Cholesterol [Mass/Vol] 159 mg/dL <200 [facility] Comment on above: <200 mg/dL Desirable 200-240 mg/dL Borderline >240 mg/dL High Risk Glucose [Mass/Vol] 156 mg/dL 74-106 [facility] Comment on above: Fasting Glucose resu lt greater than or equal to 126 mg/dL suggests DIABETES MELLITUS per A.D.A. criteria. Potassium [Moles/Vol] 3.9 mmol/L 3.5-5.1 [facility] Protein [Mass/Vol] 6.6 g/dL 6.4-8.2 [facility] Sodium [Moles/Vol] 138 mmol/L 136-145 [facility] Triglyceride [Mass/Vol] 58 mg/dL <199 [facility] Comment on above: The drugs N-Acetylcy steine and Metamizole may falsely depress this assay.Serum Triglycerides Reference Interval Normal <150 mg/dL Borderline high 150 - 199 mg/dL High 200 - 499 mg/dL Very High > or = 500 mg/dL Laboratory - Chemistry and C hemistry - challengeOrdered By: Dr. Mix on 01-09-2023 ALP [Catalytic activity/Vol] 73 U/L 45-117 [facility] ALT [Catalytic activity/Vol] 24 U/L 13-56 [facility] CO2 [Moles/Vol] 32.0 mmol/L 21.0-32.0 [facility] Free T4 [Mass/Vol] 1.19 ng/dL 0.76-1.46 [facility] Globulin (S) [Mass/Vol] 3.3 g/dL 2.2-4.2 [facility] Urea nitrogen/Creatinine [Mass ratio] 13.9 mg/mg 10-20 [facility] No Panel InformationOrdered By: Dr. Mix on 01-09-2023 Estimated GFR (MDRD) Amer 69 mL/min >60 [facility] Comment on above: GFR Calc Estimated GFR (MDRD) Non-Af Amer 57 mL/min >60 [facility] Comment on above: Non- GFR Calc Thyroid Stimulating Hormone (TSH) 1.29 uIU/mL 0.358-3.74 [facility] Urine Microalbumin/Creatinin e Ratio 20.5 mg/g CRE <30 [facility] Vitamin D 25-Hydroxy 73.9 ng/mL [facility] Comment on above: Vitamin D 25(OH) Sta tus Range Deficiency <20 ng/mL (50nmol/L) Insufficiency 20 - 30 ng/mL (50 - 75 nmol/L) Sufficiency 30 - 100 ng/mL (75 - 250 nmol/L) Toxicity >100 ng/mL (>250 nmol/L) Serum or plasma albumin selvin urement (mass/volume)Ordered By: Dr. Mix on 01-09-2023 Albumin [Mass/Vol] 3.3 g/dL 3.2-5.0 [facility] Serum or plasma albumin/glob ulin mass ratioOrdered By: Dr. Mix on 01-09-2023 Albumin/Globulin [Mass ratio] 1.0 {ratio} 0.9-2.4 [facility] Serum or plasma calcium selvin urement (mass/volume)Ordered By: Dr. Mix on 01-09-2023 Calcium [Mass/Vol] 8.9 mg/dL 8.5-10.1 [facility] Serum or plasma cholesterol in HDL measurement (mass/volume)Ordered By: Dr. Mix on 01-09-2023 Cholesterol in HDL [Mass/Vol] 78 mg/dL >40 [facility] Comment on above: The drugs N-Acetylcy steine and Metamizole may falsely depress this assay. Reference Range HDL <40 mg/dL Low HDL Cholesterol HDL >or= 60 mg/dL High HDL Cholesterol Serum or plasma cholesterol in VLDL measurement (mass/volume)Ordered By: Dr. Mix on 01-09-2023 Cholesterol in VLDL [Mass/Vol] 12 mg/dL 5-40 [facility] Serum or plasma creatinine m easurement (mass/volume)Ordered By: Dr. Mix on 01-09-2023 Creatinine [Mass/Vol] 1.01 mg/dL 0.55-1.02 [facility] Comment on above: The validity of the calculated GFR & GFRAA in patients over 70 years has not been determined. Clinical correlation is essential. Serum or plasma low density lipoprotein (LDL) cholesterol measurement (mass/volume)Ordered By: Dr. Mix on 01-09-2023 Cholesterol in LDL [Mass/Vol] 69 mg/dL 0-130 [facility] Serum or plasma urea nitroge n measurement (mass/volume)Ordered By: Dr. Mix on 01-09-2023 Urea nitrogen [Mass/Vol] 14 mg/dL 7-18 [facility] Thin prep Papanicolaou smear with manual screeningOrdered By: Dr. Mix on 01-09-2023 Thin prep Papanicolaou smear with manual screening 26 U/L 15-37 [facility] Thin prep Papanicolaou smear with manual screening 2 5-15 [facility] Thin prep Papanicolaou smear with manual screening 5.3 mg/L NO RANGE EST. [facility] Urine creatinine measurement (mass/volume)Ordered By: Dr. Mix on 01-09-2023 Creatinine (U) [Mass/Vol] 25.90 mg/dL NO RANGE EST. [facility] Laboratory - Hematology and Cell countson 03-21-2022 HbA1c (Bld) [Mass fraction] 8.3 % [facility] Work Phone: Lab Report: Vitamin D,25 Hyd roxyon 08-09-2017 Vitamin D 25-OH 39.6 ng/mL Invalid Interpretation Code [facility] Work Phone: Lab Report: Comprehensive Ca tabolic Profilon 08-08-2017 Alanine aminotransferase (ALT) 16 U/L Invalid Interpretation Code 12-78 [facility] Work Phone: Albumin 3.4 g/dL Invalid Interpretation Code 3.4-5.0 [facility] Work Phone: Albumin/Globulin Ratio 0.9 {ratio} Invalid Interpretation Code 0.9-2.4 [facility] Work Phone: Alkaline phosphatase (ALP) 86 U/L Invalid Interpretation Code 45-117 [facility] Work Phone: Anion gap 7 mmol/L Invalid Interpretation Code 5-15 [facility] Work Phone: Aspartate aminotransferase (AST) 22 U/L Invalid Interpretation Code 15-37 [facility] Work Phone: Bilirubin (total) 0.60 mg/dL Invalid Interpretation Code 0.20-1.00 [facility] Work Phone: BUN/Creatinine Ratio 18.2 RATIO Invalid Interpretation Code 10-20 [facility] Work Phone: Calcium 8.8 mg/dL Invalid Interpretation Code 8.5-10.1 [facility] Work Phone: Chloride 104 mmol/L Invalid Interpretation Code 98-107 [facility] Work Phone: CO2 30.0 mmol/L Invalid Interpretation Code 21.0-32.0 [facility] Work Phone: Creatinine 0.88 mg/dL Invalid Interpretation Code 0.55-1.02 [facility] Work Phone: eGFR (non-black) 68 mL/min/{1.73_m2} Invalid Interpretation Code >60 [facility] Work Phone: eGFR (non-black) 83 mL/min/{1.73_m2} Invalid Interpretation Code >60 [facility] Work Phone: Globulin 3.6 g/dL Invalid Interpretation Code 2.2-4.2 [facility] Work Phone: Glucose mass conc 145 mg/dL High 70-110 [facility] Work Phone: Potassium molar conc 4.3 mmol/L Invalid Interpretation Code 3.5-5.1 [facility] Work Phone: Protein 7.0 g/dL Invalid Interpretation Code 6.4-8.2 [facility] Work Phone: Sodium 141 mmol/L Invalid Interpretation Code 136-145 [facility] Work Phone: Urea nitrogen 16 mg/dL Invalid Interpretation Code 7-18 [facility] Work Phone: Lab Report: Hemoglobin A1con 08-08-2017 Hemoglobin A1c/Hemoglobin.total mass fraction (Bld) 8.3 % High 4.2-6.3 [facility] Work Phone: Lab Report: Lipid Profileon 08-08-2017 Cholesterol 137 mg/dL Invalid Interpretation Code 200 [facility] Work Phone: HDL Cholesterol 67 mg/dL Invalid Interpretation Code [facility] Work Phone: LDL Cholesterol 49 mg/dL Invalid Interpretation Code 0-130 [facility] Work Phone: Triglyceride 104 mg/dL Invalid Interpretation Code [facility] Work Phone: very low density lipoproteins 21 mg/dL Invalid Interpretation Code 5-40 [facility] Work Phone: Lab Report: Thyroid Stim Hor fabienne (TSH)on 08-08-2017 Thyroid stimulating hormone (TSH) 0.77 u[iU]/mL Invalid Interpretation Code 0.358-3.74 [facility] Work Phone: Office Visiton 04-18-2017 Adult depression screening assessment Adult depression screening assessment Invalid Interpretation Code [facility] Work Phone: Documentation of current medications (procedure) Done Invalid Interpretation Code [facility] Work Phone: Tobacco smoking status NHIS Never Invalid Interpretation Code [facility] Work Phone: Tobacco use CPHS Former smoker Invalid Interpretation Code [facility] Disease Work Phone: Lab Report: Microalb:Creat R atio,Random URon 04-03-2017 ACR (microalbumin/creatini ne) ratio 10.4 MG/G CRE Invalid Interpretation Code <30 mg/g CRE [facility] Work Phone: Urine, creatinine 58.10 mg/dL Invalid Interpretation Code NO RANGE EST. [facility] Work Phone: Urine, microalbumin 0.6 mg/dL Invalid Interpretation Code Units converted. See lab report for original value. [facility] Work Phone: Vital Signs Date Time Vital Sign Value Performing Clinician Facility 06-20-2024 11:37-0400 Body temperature 97.81 [degF] Lisandra Beasley APRN.TOBACCO PACKING MACHINE OPERATOR Work Phone: [facility] 06-20-2024 11:37-0400 Body weight 70.9 kg Lisandra Beasley APRN.TOBACCO PACKING MACHINE OPERATOR Work Phone: [facility] 06-20-2024 11:37-0400 Diastolic blood pressure 85 mm[Hg] Lisandra Beasley APRN.TOBACCO PACKING MACHINE OPERATOR Work Phone: [facility] 06-20-2024 11:37-0400 Heart rate 74 /min Lisandra Beasley APRN.TOBACCO PACKING MACHINE OPERATOR Work Phone: [facility] 06-20-2024 11:37-0400 Respiratory rate 18 /min Lisandra Beasley APRN.TOBACCO PACKING MACHINE OPERATOR Work Phone: [facility] 06-20-2024 11:37-0400 SaO2% (BldA) [Mass fraction] 98 % Lisandra Beasley APRN.TOBACCO PACKING MACHINE OPERATOR Work Phone: [facility] 06-20-2024 11:37-0400 Systolic blood pressure 134 mm[Hg] Lisandra Beasley APRN.TOBACCO PACKING MACHINE OPERATOR Work Phone: [facility] 10-24-2023 09:24-0500 Body height 165.[address] Mark Calabrese Work Phone: [facility] 10-24-2023 09:24-0500 Body mass index (BMI) [Ratio] 25.6 kg/m2 Dr. Mark Calabrese Work Phone: [facility] 10-24-2023 09:24-0500 Body temperature 98.6 [degF] Dr. Mark Calabrese Work Phone: [facility] 10-24-2023 09:24-0500 Body weight 69.[address] Mark Calabrese Work Phone: [facility] 10-24-2023 09:24-0500 Diastolic blood pressure 72 mm[Hg] Dr. Mark Calabrese Work Phone: [facility] 10-24-2023 09:24-0500 Heart rate 70 /min Dr. Mark Calabrese Work Phone: [facility] 10-24-2023 09:24-0500 Respiratory rate 16 /min Dr. Mark Calabrese Work Phone: [facility] 10-24-2023 09:24-0500 SaO2% (BldA) [Mass fraction] 97 % Dr. Mark Calabrese Work Phone: [facility] 10-24-2023 09:24-0500 Systolic blood pressure 116 mm[Hg] Dr. Mark Calabrese Work Phone: [facility] 03-21-2022 08:32-0400 Body height 165.[address] Radha Whittaker Work Phone: [facility] Work Phone: 03-21-2022 08:32-0400 Body mass index (BMI) [Ratio] 25.9 kg/m2 Dr. Radha Whittaker Work Phone: [facility] Work Phone: 03-21-2022 08:32-0400 Body temperature 95.8 [degF] Dr. Radha Whittaker Work Phone: [facility] Work Phone: 03-21-2022 08:32-0400 Body weight 70.[address] Radha Whittaker Work Phone: [facility] Work Phone: 03-21-2022 08:32-0400 Diastolic blood pressure 72 mm[Hg] Dr. Radha Whittaker Work Phone: [facility] Work Phone: 03-21-2022 08:32-0400 Heart rate 70 /min Dr. Radha Whittaker Work Phone: [facility] Work Phone: 03-21-2022 08:32-0400 Respiratory rate 18 /min Dr. Radha Whittaker Work Phone: [facility] Work Phone: 03-21-2022 08:32-0400 SaO2% (BldA) [Mass fraction] 97 % Dr. Radha Whittaker Work Phone: [facility] Work Phone: 03-21-2022 08:32-0400 Systolic blood pressure 120 mm[Hg] Dr. Radha Whittaker Work Phone: [facility] Work Phone: 04-18-2017 09:22-0400 BMI (Body Mass Index) 26.64 kg/m2 Payal Petersburg CLOTH BLEACHING SUPERVISOR [facility] Work Phone: 04-18-2017 09:22-0400 Body Temperature 97.8 [degF] Payal Zimmer CMA [facility] Work Phone: 04-18-2017 09:22-0400 BP Diastolic 60 mm[Hg] Payal Zimmer CMA [facility] Work Phone: 04-18-2017 09:22-0400 BP Systolic 97 mm[Hg] Payal Zimmer CMA [facility] Work Phone: 04-18-2017 09:22-0400 Height 166.37 cm Payal Zimmer CMA [facility] Work Phone: 04-18-2017 09:22-0400 Pulse (Heart Rate) 71 /min Payal Zimmer CMA [facility] Work Phone: 04-18-2017 09:22-0400 Respiratory Rate 18 /min Payal Zimmer CMA [facility] Work Phone: 04-18-2017 09:22-0400 Weight 73.76 kg Payal Zimmer CMA [facility] Work Phone: Encounters Encounter Date Encounter Type Care Provider Facility Start: 04-08-2025 ambulatory Rogelio Calabrese [facility] lity:[facility] Start: 11-12-2024 End: 11-12-2024 ambulatory Rogelio Calabrese Facility:[facility] Start: 06-22-2024 End: 06-22-2024 ambulatory Varsha Burgos RN NURSE REGIONAL OWNER OPERATOR TRUCK DRIVER Comment on above: FYI-No Action Needed Start: 06-22-2024 End: 06-22-2024 Telephone encounter Lisandra Beasley APRN.TOBACCO PACKING MACHINE OPERATOR Work Phone: [facility] Comment on above: Results Start: 06-20-2024 End: 06-20-2024 ambulatory [facility] Facility:[facility] Start: 06-20-2024 End: 06-20-2024 Patient encounter procedure Lisandra Beasley APRN.TOBACCO PACKING MACHINE OPERATOR Work Phone: [facility] Comment on above: Urinary frequency (P rimary Dx); Recurrent UTI (urinary tract infection) Start: 05-30-2024 End: 05-30-2024 ambulatory Rogelio Calabrese Facility:[facility] Start: 04-23-2024 End: 04-23-2024 ambulatory Rogelio Calabrese Facility:[facility] Start: 01-29-2024 End: 01-29-[address] Rogelio Calabrese Work Phone: [facility] Work Phone: Start: 01-29-2024 End: 01-29-[address] Rogelio Calabrese Work Phone: [facility] Start: 12-27-2023 End: 12-27-[address] Mark Calabrese Work Phone: [facility] Work Phone: Start: 12-27-2023 End: 12-27-[address] Mark Calabrese Work Phone: [facility] Start: 10-24-2023 End: 10-24-[address] Mark Calabrese Work Phone: [facility] Work Phone: Start: 01-09-2023 End: 01-09-[address] [facility] Work Phone: Start: 01-09-2023 End: 01-09-[address] [facility] Start: 06-06-2022 End: 06-06-[address] Radha Whittaker Work Phone: [facility] Work Phone: Start: 06-06-2022 End: 06-06-[address] Radha Whittaker Work Phone: [facility] Start: 03-21-2022 End: 03-21-[address] Radha Whittaker Work Phone: [facility] Procedures Date Procedure Procedure Detail Performing Clinician Start: 06-20-2024 Urnls dip stick/tabl et rgnt auto w/o microscopy Lisandra Beasley APRN.TOBACCO PACKING MACHINE OPERATOR Work Phone: Start: 08-08-2017 End: 08-08-2017 *CMP Complete Metabolic Panel Antonella Cramer [facility] Work Phone: Start: 08-08-2017 End: 08-08-2017 Hemoglobin A1c/Hemoglobin.total in Blood Antonella Cramer [facility] Work Phone: Start: 08-08-2017 End: 08-08-2017 Lipid 1996 panel - Serum or Plasma Antonella Cramer [facility] Work Phone: Start: 08-08-2017 End: 08-08-2017 Thyrotropin [Units/volume] in Serum or Plasma Antonella Cramer [facility] Work Phone: Start: 08-07-2017 End: 08-08-2017 25-Hydroxyvitamin D2+25-Hydroxyvitamin D3 [Mass/volume] in Serum or Plasma Antonella Crmaer [facility] Work Phone: Start: 04-18-2017 End: 08-08-2017 *CMP Complete Metabolic Panel Antonella Cramer [facility] Work Phone: Start: 04-18-2017 End: 08-09-2017 25-Hydroxyvitamin D2+25-Hydroxyvitamin D3 [Mass/volume] in Serum or Plasma Antonella Cramer [facility] Work Phone: Start: 04-18-2017 End: 08-08-2017 Hemoglobin A1c/Hemoglobin.total in Blood Antonella Cramer [facility] Work Phone: Start: 04-18-2017 End: 08-08-2017 Lipid 1996 panel - Serum or Plasma Antonella Cramer [facility] Work Phone: Start: 04-18-2017 End: 08-08-2017 Thyrotropin [Units/volume] in Serum or Plasma Antonella Cramer [facility] Work Phone: Plan of Treatment Date Care Activity Detail Author Start: 05-31-2026 Urine microalbumin profile DTaP,Tdap,Td Vaccine (2 - Td or Tdap) [facility] Start: 06-09-2024 Covid-19 Vaccine ( season) Covid-19 Vaccine ( season) [facility] Start: 06-09-2024 Influenza vaccination Influenza Vacc ine (#1) [facility] Start: 10-09-2023 Advance Directive Discussion Advance Directive Discussion [facility] Start: 08-15-2017 End: 08-15-2017 Appointment Appointment [facility] Work Phone: Start: 08-08-2017 End: 08-08-2017 *CMP Complete Metabolic Panel *CMP Complete Metabolic Panel [facility] Work Phone: Start: 08-08-2017 End: 08-08-2017 Hemoglobin A1c/Hemoglobin.total mass fraction (Bld) *HgA1C [facility] Work Phone: Start: 08-08-2017 End: 08-08-2017 Lipid panel [AGGREGATE] *Lipid Profile [facility] Work Phone: Start: 08-08-2017 End: 08-08-2017 Thyroid stimulating hormone (TSH) *TSH [facility] Work Phone: Start: 08-07-2017 End: 08-08-2017 25-Hydroxyvitamin D2+25-Hydroxyvitamin D3 [Mass/volume] in Serum or Plasma *Vitamin D (Calciferol) [facility] Work Phone: Start: 04-18-2017 End: 08-08-2017 *CMP Complete Metabolic Panel *CMP Complete Metabolic Panel [facility] Work Phone: Start: 04-18-2017 End: 08-09-2017 25-Hydroxyvitamin D2+25-Hydroxyvitamin D3 [Mass/volume] in Serum or Plasma *Vitamin D (Calciferol) [facility] Work Phone: Start: 04-18-2017 End: 08-08-2017 Hemoglobin A1c/Hemoglobin.total mass fraction (Bld) *HgA1C [facility] Work Phone: Start: 04-18-2017 End: 08-08-2017 Lipid panel [AGGREGATE] *Lipid Profile [facility] Work Phone: Start: 04-18-2017 End: 08-08-2017 Thyroid stimulating hormone (TSH) *TSH [facility] Work Phone: Start: 03-16-2017 End: 03-16-2017 *CMP Complete Metabolic Panel *CMP Complete Metabolic Panel [facility] Work Phone: Start: 03-16-2017 End: 03-16-2017 *Microalbumin, Creatine Ratio, rand urine *Microalbumin, Creatine Ratio, rand urine [facility] Work Phone: Start: 03-16-2017 End: 03-16-2017 Hemoglobin A1c/Hemoglobin.total mass fraction (Bld) *HgA1C [facility] Work Phone: Start: 11-02-2016 Glaucoma screening Dilated Retinal E xam [facility] Start: 2016 Screening for osteoporosis Bone Density Screening [facility] Start: 08-24-2016 Hemoglobin A1c measurement HbA1C [facility] Start: 02-13-2016 Hepatitis B surface antibody level LDL Cholesterol [facility] Start: 07-30-2015 Shingrix Vaccine (2 of 3) Shingrix Vaccine (2 of 3) [facility] Start: 11-26-2014 Diabetic foot examination Diabetic Foot Exam [facility] Start: 11-22-2014 Hepatitis B screening Urine Al bumin:Creatinine Ratio [facility] Start: 08-27-2014 Screening for malign ant neoplasm of breast Mammogram Screening [facility] Start: 2011 RSV Vaccine (1 - 1-d ose 60+ series) RSV Vaccine (1 - 1-dose 60+ series) [facility] Start: 1996 Screening for malign ant neoplasm of colon [facility] Start: 1969 Annual PCP Team Senior Interaction Designer sheldon Disease Visit Annual PCP Team Chronic Disease Visit [facility] Start: 1969 Anxiety Screening Anxiety Screening [facility] Start: 1969 Depression Screening Depression Scre ening [facility] Start: 1969 Hepatitis C screening Hepatitis C Sc alejo [facility] Bacteria identified in Urine by Culture URINE CULTURE Microbiology Routine Urinary frequency Ordered: 06/20/2024 [facility] Work Phone: Comment on above: Ordered: 06/20/2024 Patient Education HYPOTHYROIDISM [facility] Work Phone: Immunizations Immunization Date Immunization Notes Care Provider Fa [facility] 09-13-2023 influenza virus vacc ine, unspecified formulation Lisandra Beasley APRN.TOBACCO PACKING MACHINE OPERATOR Work Phone: [facility] 07-19-2010 influenza virus vacc ine, unspecified formulation Lisandra Beasley FRONT END ENGINEER.TOBACCO PACKING MACHINE OPERATOR Work Phone: [facility] 08-27-2009 novel influenza-H1N1 -09, all formulations Lisandra Beasley APRN.TOBACCO PACKING MACHINE OPERATOR Work Phone: [facility] 07-23-2009 influenza virus vacc ine, unspecified formulation Lisandra Beasley APRN.TOBACCO PACKING MACHINE OPERATOR Work Phone: [facility] Payers Date Payer Category Payer Self-pay [id number] 2019 Unknown MMO MMO MEDICARE SUPPLEMENT [id number] 2019-Present [phone] [address] [place] [address] Indemnity [id number] 2016 Medicare MEDICARE MEDICAR E A AND B [id number] 2016-Present [phone] [address] [address] [place] [address] Medicare [id number] 2016 Medicare [id number] 2013 Unknown [id number] Unknown [id number] Unknown [id number] Social History Date Type Detail Facility Start: 03-21-2022 End: 10-24-2023 Tobacco smoking status CAIS Unknown if ever smoked [facility] Start: 1950 Sex Assigned At Female W [facility] Start: 05-10-2011 Tobacco smoking stat us CAIS Ex-smoker [facility] History of tobacco use Current smoker [facility] Start: 05-10-2011 Tobacco use and exposure Smokeless tobacco non-user [facility] Start: 06-20-2024 Alcoholic beverage intake Current drinker of alcohol (finding) [facility] Start: 09-15-2020 End: 06-20-2024 History of Social function [facility] Start: 09-15-2020 End: 06-20-2024 Tobacco use panel [facility] National Score (1-10 0), lower number is lower risk Not on file [facility] Start: 1950 Sex assigned at Not on file [facility] Medical Equipment Procedure Code Equipment Code Equipment Origin al Text Equipment Identifier Dates Blood Sugar Diagnostic (Freestyle Precision Joey Strips) strip Start: 04-20-2021 Pen Needle, Diab etic (Bd Ultra-Fine Jeanine Pen Needle) 32 gauge x 5/32 needle Start: 03-21-2022 Pen Needle, Diab etic (Bd Ultra-Fine Jeanine Pen Needle) 32 gauge x 5/32 needle Start: 01-26-2021 End: 03-21-2022 Blood Sugar Diagnostic (Freestyle Precision Joey Strips) strip Start: 07-11-2022 Pen Needle, Diab etic (Bd Ultra-Fine Jeanien Pen Needle) 32 gauge x 5/32 needle Start: 03-21-2022 Blood Sugar Diagnostic (Freestyle Precision Joey Strips) strip Start: 04-20-2021 End: 07-11-2022 Pen Needle, Diab etic (Bd Ultra-Fine Jeanine Pen Needle) 32 gauge x 5/32 needle Start: 01-26-2021 End: 03-21-2022 Blood Sugar Diagnostic (Freestyle Precision Joey Strips) strip Start: 07-11-2022 Pen Needle, Diab etic (Bd Ultra-Fine Jeanine Pen Needle) 32 gauge x 5/32 needle Start: 10-24-2023 Blood Sugar Diagnostic (Freestyle Precision Joey Strips) strip Start: 04-20-2021 End: 07-11-2022 Pen Needle, Diab etic (Bd Ultra-Fine Jeanine Pen Needle) 32 gauge x 5/32 needle Start: 01-26-2021 End: 03-21-2022 Pen Needle, Diab etic (Bd Ultra-Fine Jeanine Pen Needle) 32 gauge x 5/32 needle Start: 03-21-2022 End: 02-14-2023 Pen Needle, Diab etic (Bd Ultra-Fine Jeanine Pen Needle) 32 gauge x 5/32 needle Start: 02-14-2023 End: 10-24-2023 Blood Sugar Diagnostic (Freestyle Precision Joey Strips) strip Start: 07-11-2022 Pen Needle, Diab etic (Bd Ultra-Fine Jeanine Pen Needle) 32 gauge x 5/32 needle Start: 10-24-2023 Blood Sugar Diagnostic (Freestyle Precision Joey Strips) strip Start: 04-20-2021 End: 07-11-2022 Pen Needle, Diab etic (Bd Ultra-Fine Jeanine Pen Needle) 32 gauge x 5/32 needle Start: 01-26-2021 End: 03-21-2022 Pen Needle, Diab etic (Bd Ultra-Fine Jeanine Pen Needle) 32 gauge x 5/32 needle Start: 03-21-2022 End: 02-14-2023 Pen Needle, Diab etic (Bd Ultra-Fine Jeanine Pen Needle) 32 gauge x 5/32 needle Start: 02-14-2023 End: 10-24-2023 use 5 times daily [id number] Start: 06-06-2016 Use once daily [id number] Start: 05-24-2016 Clinical Notes 06-20-2024 to 06-22-2024 Telephone Encounter - Mercedes Hilario MA - 06/22/2024 11:21 AM EDTTelephone Encounter - Mercedes Hilario MA - 06/22/2024 11:21 AM EDTTelephone Encounter - Mercedes Hilario MA - 06/22/2024 8:23 AM EDT Note Date & Type Note Facility 06-22-2024 Telephone encount er Note Notified by NOC. Mercedes Hilario MA [facility] 06-22-2024 Miscellaneous Notes Formattin g of this note might be different from the original. Notified by NOC. Mercedes Hilario MA Left message for patient to return call. Mercedes Hilario MA Patient's urine culture did not grow any significant bacteria. Patient can continue the antibiotic if it seems to be helping. If patient symptoms or not improving she needs to follow-up with her primary care. documented in this encounter [facility] 06-22-2024 Telephone encount er Note Patient calling with return call/Message from office: Patient called back and given message from office note dated 06/22/24. Pt verbalized understanding of message given. Patient denies any new or worsening symptoms of which a provider is not aware:Yes. Pt stated that her symptoms are improving. [facility] 06-22-2024 Miscellaneous Notes Formattin g of this note might be different from the original. Patient calling with return call/Message from office: Patient called back and given message from office note dated 06/22/24. Pt verbalized understanding of message given. Patient denies any new or worsening symptoms of which a provider is not aware:Yes. Pt stated that her symptoms are improving. documented in this encounter [facility] 06-22-2024 Telephone encount er Note Left message for patient to return call. Mercedes Hilario MA [facility] 06-22-2024 Telephone encount er Note Patient's urine culture did not grow any significant bacteria. Patient can continue the antibiotic if it seems to be helping. If patient symptoms or not improving she needs to follow-up with her primary care. [facility] 06-20-2024 Note HNO ID: [id number] Author: LISANDRA BEASLEY APRN.CNP Service: ? Author Type: Nurse Practitioner Type: Progress Notes Filed: 06/20/2024 11:48 Note Text: CC: Patient presents with: UTI: Frequency, hematuria x3 days HPI Lou Pleitez is a 73 year old female who presents with complaint of possible UTI. These symptoms have been present for last night . Associated symptoms: frequency and hematuria Denies: fever, chills, sweats, abdominal pain, and flank pain Treatments: nothing The ROS was otherwise negative. PMH, Medications, labs, allergies, and recent past visits with PCP were reviewed and updated as able. PHYSICAL EXAM: BP 134/85 Pulse 74 Temp 36.6 ?C (97.8 ?F) Resp 18 Wt 70.9 kg (156 lb 4.9 oz) SpO2 98% General: Well appearing and alert CV: Regular rate and rhythm without obvious murmur Lungs: clear to auscultation bilaterally Back: straight and symmetric Abdomen: soft, nontender, nondistended PAST MEDICAL HISTORY No date: Type I (juvenile type) diabetes mellitus without mention of complication, uncontrolled No date: Unspecified hypothyroidism PAST SURGICAL HISTORY No date: DELIVERY ONLY Comment: , low cervical x2 ALLERGIES Patient has no known allergies. MEDICATIONS beta-carotene,A,-vits C,E/mins (OCUVITE ORAL) Take by mouth. Insulin Lispro, Human, (HUMALOG KWIKPEN) 100 unit/mL inpn as directed up to 30 units daily insulin needles, DISPOSABLE, (PEN NEEDLE) 31 gauge x 5/16 ndle use 5 times daily Insulin Syringe-Needle U-100 (BD INSULIN SYRINGE UF II) 0.5 mL 31 gauge x 5/16 syrg Use once daily insulin glargine (LANTUS) 100 unit/mL injection 20 units at bedtime (Patient taking differently: 26 units at bedtime) levothyroxine (SYNTHROID) 100 mcg tablet 6 AND 1/2 pills each week lovastatin (MEVACOR) 20 mg tablet Take 1 tablet by mouth once daily. ramipril (ALTACE) 5 mg capsule Take 1 capsule by mouth once daily. blood sugar diagnostic (ONE TOUCH ULTRA TEST) IN VITRO Strp testing 4-5 times daily CALCIUM 600 600 MG TAB Take one(1) tablet daily. MULTIVITAMIN TAB Take one(1) tablet daily. ALEVE 220 MG TAB TYLENOL 325 MG TAB as needed nitrofurantoin monohydrate and macrocrystal (MACROBID) 100 mg capsule Take 1 capsule by mouth two times a day for 5 days. estradiol(ESTRACE 0.01% (0.1 MG/G) VAGINAL CREAM) use ut dict one or 2 x weekly (Patient not taking: Reported on 06/20/2024) ASPIRIN 81 MG TAB Take one (1) tablet daily . FAMILY HISTORY Problem Relation Age of Onset Heart Father Cancer Brother Lung Ca Cancer Brother Liver Ca Social History Tobacco Use Smoking status: Former Smokeless tobacco: Never Substance Use Topics Alcohol use: Yes Comment: rare ASSESSMENT/PLAN: 1. Urinary frequency - ICD9: 788.41, ICD10: R35.0 (primary diagnosis) - UA DIP, URINE (POC) - URINE CULTURE 2. Recurrent UTI (urinary tract infection) - ICD9: 599.0, ICD10: N39.0 - NITROFURANTOIN MONOHYDRATE AND MACROCRYSTAL 100 MG ORAL CAP Prescription instructions reviewed with patient as applicable. Potential red flag symptoms discussed with the patient. Reviewed appropriate action plan to take if red flag symptoms occur. Patient agreeable to treatment plan. Lisandra Beasley APRN.[facility] 06-20-2024 History of Presen t illness Narrative CC: Patient presents with: UTI: Frequency, hematuria x3 days HPI Lou Pleitez is a 73 year old female who presents with complaint of possible UTI. These symptoms have been present for last night . Associated symptoms: frequency and hematuria Denies: fever, chills, sweats, abdominal pain, and flank pain Treatments: nothing The ROS was otherwise negative. PMH, Medications, labs, allergies, and recent past visits with PCP were reviewed and updated as able. PHYSICAL EXAM: BP 134/85 Pulse 74 Temp 36.6 C (97.8 F) Resp 18 Wt 70.9 kg (156 lb 4.9 oz) SpO2 98% General: Well appearing and alert CV: Regular rate and rhythm without obvious murmur Lungs: clear to auscultation bilaterally Back: straight and symmetric Abdomen: soft, nontender, nondistended PAST MEDICAL HISTORY No date: Type I (juvenile type) diabetes mellitus without mention of complication, uncontrolled No date: Unspecified hypothyroidism PAST SURGICAL HISTORY No date: DELIVERY ONLY Comment: , low cervical x2 ALLERGIES Patient has no known allergies. MEDICATIONS beta-carotene,A,-vits C,E/mins (OCUVITE ORAL) Take by mouth. Insulin Lispro, Human, (HUMALOG KWIKPEN) 100 unit/mL inpn as directed up to 30 units daily insulin needles, DISPOSABLE, (PEN NEEDLE) 31 gauge x 5/16 ndle use 5 times daily Insulin Syringe-Needle U-100 (BD INSULIN SYRINGE UF II) 0.5 mL 31 gauge x 5/16 syrg Use once daily insulin glargine (LANTUS) 100 unit/mL injection 20 units at bedtime (Patient taking differently: 26 units at bedtime) levothyroxine (SYNTHROID) 100 mcg tablet 6 & 1/2 pills each week lovastatin (MEVACOR) 20 mg tablet Take 1 tablet by mouth once daily. ramipril (ALTACE) 5 mg capsule Take 1 capsule by mouth once daily. blood sugar diagnostic (ONE TOUCH ULTRA TEST) IN VITRO Strp testing 4-5 times daily CALCIUM 600 600 MG TAB Take one(1) tablet daily. MULTIVITAMIN TAB Take one(1) tablet daily. ALEVE 220 MG TAB TYLENOL 325 MG TAB as needed nitrofurantoin monohydrate and macrocrystal (MACROBID) 100 mg capsule Take 1 capsule by mouth two times a day for 5 days. estradiol(ESTRACE 0.01% (0.1 MG/G) VAGINAL CREAM) use ut dict one or 2 x weekly (Patient not taking: Reported on 06/20/2024) ASPIRIN 81 MG TAB Take one (1) tablet daily . FAMILY HISTORY Problem Relation Age of Onset Heart Father Cancer Brother Lung Ca Cancer Brother Liver Ca Social History Tobacco Use Smoking status: Former Smokeless tobacco: Never Substance Use Topics Alcohol use: Yes Comment: rare ASSESSMENT/PLAN: 1. Urinary frequency - ICD9: 788.41, ICD10: R35.0 (primary diagnosis) - UA DIP, URINE (POC) - URINE CULTURE 2. Recurrent UTI (urinary tract infection) - ICD9: 599.0, ICD10: N39.0 - NITROFURANTOIN MONOHYDRATE & MACROCRYSTAL 100 MG ORAL CAP Prescription instructions reviewed with patient as applicable. Potential red flag symptoms discussed with the patient. Reviewed appropriate action plan to take if red flag symptoms occur. Patient agreeable to treatment plan. Lisandra Beasley APRN.AAKASH documented in this encounter [facility] Evaluation note Diagnosis Onset Date Benign essential hypertension chronic Diabetes chronic Diabetic polyneuropathy asso ciated with type 1 diabetes mellitus chronic Hypothyroidism due to Hashim aicha's thyroiditis chronic Mixed hyperlipidemia chronic [facility] Work Phone: Evaluation noteNo assessment information available 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 Work Phone: Evaluation note* Diagnosis Urinary frequency- Primary Recurrent UTI (urinary tract infection) Urinary tract infection, site not specified documented in this encounter [facility] Chief Complaint and Reason for Visit Chief Complaint 4 M FU VERTIGO. 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 Mixed hyperlipidemia Type 1 diabetes mellitus with stage 3a chronic kidney disease Advance Directives No Advanced Directives Records Found Advance Directive Response Recorded Date/ Time Living Will No October 16 1 5:05pm Power of Caramel Cutter Hand No Har[address] 8th, 2 021 5:05pm Summary Purpose Family History No Family History Records Found Additional Source Comments Goals (unrecognized section and content) Goals may be documented in a n alternate sectionGoals may be documented in an alternate sectionGoals may be documented in an alternate sectionGoals may be documented in an alternate section Care Teams (unrecognized sec tion and content) Team Status: Active Member Role Status Dates Dr. Radha Whittaker MD Family Provider Active Dr. Mark Calabrese MD Primary Care Provider Activ e Team Status: Inactive Member Role Status Dates Dr. Mark Calabrese MD Primary Care Provider Activ e Dr. Piotr Mix MD Attending Provider, Referring Provi sharri Active Team Status: Inactive Member Role Status Dates Dr. Mark Calabrese MD Primary Care Provider, Refe rring Provider Active Dr. Piotr Mix MD Attending Provider Active Team Status: Inactive Member Role Status Dates Dr. Mark Calabrese MD Primary Care Provider, Atte nding Provider Active Team Status: Active Member Role Status Dates Dr. Radha Whittaker MD Family Provider Active Dr. Rogelio Calabrese MD Primary Care Provider Acti ve Team Status: Inactive Member Role Status Dates Dr. Rogelio Calabrese MD Primary Care Provider, Ref erring Provider Active Dr. Piotr Mix MD Attending Provider Active Team Status: Inactive Member Role Status Dates Dr. Rogelio Calabrese MD Primary Care Provider, Att ending Provider Active Primary Clinician Relationship Specialty Start Date End Date Radha Stinson MD [address] [place], [place] [id number] PCP - General 10/29/03 Primary Clinician Relationship Specialty Start Date End Date Radha Stinson MD [address] [place], [place] [id number] PCP - General 10/29/03 Primary Clinician Relationship Specialty Start Date End Date [facility] Stinson [facility] [address] [facility] [place] [place] [id number] PCP - General 10/29/03 Source Comments (unrecognize d section and content) In the event this informatio n is protected by the Federal Confidentiality of Alcohol and Drug Abuse Patient Records regulations: The Federal rules restrict any use of the information to criminally investigate or prosecute any alcohol or drug abuse patient.[facility] the event this information is protected by the Federal Confidentiality of Alcohol and Drug Abuse Patient Records regulations: The Federal rules restrict any use of the information to criminally investigate or prosecute any alcohol or drug abuse patient.[facility] the event this information is protected by the Federal Confidentiality of Alcohol and Drug Abuse Patient Records regulations: The Federal rules restrict any use of the information to criminally investigate or prosecute any alcohol or drug abuse patient.[facility] Reason for Visit (unrecogniz ed section and content) Reason Comments UTI Frequency, hematuria x3 days Reason Comments FYI-No Action Needed Reason Comments Results INFORMATION SOURCE (unrecogn ized section and content) DATE CREATED AUTHOR 06/22/2024 [facility] DATE CREATED AUTHOR 'Manuel DAS 04/07/2025 [facility] FOR RECORDS PERTAINING TO PATIENTS WHO ARE OR HAVE BEEN ENROLLED IN A CHEMICAL DEPENDENCY/SUBSTANCEABUSE PROGRAM, SOME INFORMATION MAY BE OMITTED. This clinical summary was aggregated from multiple sources. Caution should be exercised in using it in the provision of clinical care. This summary normalizes information from multiple sources, and as a consequence, information in this document may materially change the coding, format and clinical context of patient data. In addition, data may be omitted in some cases. CLINICAL DECISIONS SHOULD BE BASED ON THE PRIMARY CLINICAL RECORDS. [facility]. provides no warranty or guarantee of the accuracy or completeness of information in this document.
[2025-04-08 08:45] LABS: Ionized Calcium Order ORDER TUBE
[2025-04-08 08:51] LABS: Hematocrit 43.3 % (37-47); Hemoglobin 14.0 g/dL (12.0-15.0); Mean Corp Hgb Conc 32.3 g/dL (32-36); Mean Corpuscular Volume 87.7 fL (81-99); Mean Platelet Vol. 11.6 fl (6.2-12.0); Platelet Count 219 K/mm3 (150-450); RBC Distribution Width CV 14.6 % (11.6-14.6); RBC Distribution Width SD 47.0 fl (35.1-43.9); Red Blood Count 4.94 M/mm3 (4.2-5.4); White Blood Count 7.5 K/mm3 (4.4-11.0)
[2025-04-08 09:29] LABS: PTHIN 45 pg/mL (11-61)
[2025-04-08 09:31] LABS: AST(SGOT) 32 U/L (<=31); Alanine Aminotransfer ALT/SGPT 19 U/L (<=34); Albumin, Serum 4.0 g/dL (3.4-4.8); Alkaline Phosphatase 94 U/L (35-104); Anion Gap 9 (5-15); BUN 19 mg/dL (4-19); BUN/Creat Ratio 20.6 RATIO (10-20); Calcium,Total 9.5 mg/dL (7.6-11.0); Carbon Dioxide 29.1 mmol/L (21.0-32.0); Chloride 99 mmol/L (98-108); Cholesterol 158 mg/dL (<=200); Globulin 2.6 g/dL (2.2-4.2); Glucose 141 mg/dL (70-99); Low Density Lipoprotein Calc. 67 mg/dL; Potassium 4.7 mmol/L (3.3-5.1); Triglycerides 81 mg/dL; Very Low Density Lipoprotein 16 mg/dL (5-40); Vitamin D,25 Hydroxy 55.9 ng/mL (30-100); cholesterol:hdl ratio screen 2.10
[2025-04-08 09:52] LABS: Creatinine, Urine (random) 105.00 mg/dL (28.00-217.00); Microalbumin,Random Urine < 12.0 mg/L (NO RANGE EST.)
[2025-04-08 10:15] LABS: Vitamin B12 1597 pg/mL (180-914)
[2025-04-08 10:32] LABS: Iron 91 ug/dL (50-170)
== END | disposition home or self-care (01) ==
LOC: LAB 07:37
PROVIDERS: PCP Family Medicine; Referring Provider Internal Medicine Endocrinology, Diabetes & Metabolism; Visit Provider Internal Medicine Endocrinology, Diabetes & Metabolism
DX: E10.42 Type 1 diabetes mellitus with diabetic polyneuropathy (principal); E10.22 Type 1 diabetes mellitus with diabetic chronic kidney disease; E10.65 Type 1 diabetes mellitus with hyperglycemia; N18.31 Chronic kidney disease, stage 3a; M85.80 Other specified disorders of bone density and structure, unspecified site; I12.9 Hypertensive chronic kidney disease with stage 1 through stage 4 chronic kidney disease, or unspecified chronic kidney disease; E78.2 Mixed hyperlipidemia; E03.8 Other specified hypothyroidism; E06.3 Autoimmune thyroiditis
CPT/HCPCS: 36415; 80053; 80061; 82043; 82306; 82330; 82570; 82607; 83540; 83970; 84443; 85027

== ENCOUNTER → 2025-06-30 | Outpatient (CLI) | payer MEDICARE, OTHER, SELFPAY ==
[2025-06-30 09:15] LABS: Creatinine, Urine (random) 116.00 mg/dL (28.00-217.00); Microalbumin,Random Urine 12.4 mg/L (<20 mg/L)
[2025-06-30 09:39] LABS: Anion Gap 8 (5-15); BUN 15 mg/dL (4-19); BUN/Creat Ratio 16.4 RATIO (10-20); Calcium,Total 9.3 mg/dL (7.6-11.0); Carbon Dioxide 29.4 mmol/L (21.0-32.0); Chloride 99 mmol/L (98-108); Glucose 243 mg/dL (70-99); Potassium 5.0 mmol/L (3.3-5.1)
== END | disposition home or self-care (01) ==
PROVIDERS: PCP Family Medicine; Referring Provider Family Medicine; Visit Provider Family Medicine
DX: E10.9 Type 1 diabetes mellitus without complications (principal)
CPT/HCPCS: 36415; 80048; 82043; 82570

== ENCOUNTER → 2025-07-31 | Outpatient (CLI) | payer MEDICARE, OTHER, SELFPAY ==
[2025-07-31 12:10] LABS: Hematocrit 40.4 % (37-47); Hemoglobin 13.4 g/dL (12.0-15.0); Immature Granulocytes Count 0.020 X10^3/uL (0.0-0.0); Mean Corp Hgb Conc 33.2 g/dL (32-36); Mean Corpuscular Volume 86.7 fL (81-99); Mean Platelet Vol. 11.7 fl (6.2-12.0); NRBC Flagged by Analyzer 0 % (0-5); Platelet Count 233 K/mm3 (150-450); RBC Distribution Width CV 13.9 % (11.6-14.6); RBC Distribution Width SD 43.8 fl (35.1-43.9); Red Blood Count 4.66 M/mm3 (4.2-5.4); White Blood Count 7.0 K/mm3 (4.4-11.0)
[2025-07-31 12:39] LABS: AST(SGOT) 26 U/L (<=31); Alanine Aminotransfer ALT/SGPT 14 U/L (<=34); Albumin, Serum 4.1 g/dL (3.4-4.8); Alkaline Phosphatase 73 U/L (35-104); Anion Gap 9 (5-15); BUN 21 mg/dL (4-19); BUN/Creat Ratio 23.1 RATIO (10-20); Calcium,Total 9.8 mg/dL (7.6-11.0); Carbon Dioxide 29.4 mmol/L (21.0-32.0); Chloride 100 mmol/L (98-108); Globulin 2.6 g/dL (2.2-4.2); Glucose 159 mg/dL (70-99); Potassium 4.9 mmol/L (3.3-5.1)
[2025-07-31 13:15] LABS: Ferritin 154 ng/mL (22-378)
[2025-08-05 08:10] LABS: Zinc, Plasma or Serum 82 ug/dL (44-115)
== END | disposition home or self-care (01) ==
LOC: MFPLAB 09:59
PROVIDERS: Internal Medicine Endocrinology, Diabetes & Metabolism; PCP Family Medicine; Visit Provider Family Medicine
DX: L65.9 Nonscarring hair loss, unspecified (principal); E03.9 Hypothyroidism, unspecified; E06.3 Autoimmune thyroiditis; E61.1 Iron deficiency
CPT/HCPCS: 36415; 80053; 82728; 84439; 84443; 84630; 85025; 85652